=== PATIENT | female | born 1950 | race Caucasian/White ===

== ENCOUNTER 2018-05-01 08:19 | Day surgery (SDC) | payer MEDICARE, MEDICAID ==
[2018-04-16 12:08] LABS: ABSOLUTE EOSINOPHILS # (AUTO) 0.1 10^3/uL (0.0-0.6); ABSOLUTE LYMPHOCYTES (AUTO) 1.5 10^3/uL (0.5-4.7); ABSOLUTE MONOCYTES (AUTO) 0.4 10^3/uL (0.1-1.4); ABSOLUTE NEUT (AUTO) 2.7 10^3/uL (1.7-8.2); BASOPHILS % (AUTO) 0.7 % (0-2); EOSINOPHILS % (AUTO) 1.9 % (0-6); HEMATOCRIT 42.2 % (36.0-47.0); HEMOGLOBIN 14.5 g/dL (12.0-15.5); LYMPHOCYTES % (AUTO) 31.9 % (13-45); MEAN CORPUSCULAR HEMOGLOBIN 31.9 pg (27.0-33.4); MEAN CORPUSCULAR HGB CONC 34.4 g/dL (32.0-36.0); MEAN CORPUSCULAR VOLUME 93 fl (80-97); MONOCYTES % (AUTO) 7.7 % (3-13); PLATELET COUNT 166 10^3/uL (150-450); RED BLOOD COUNT 4.55 10^6/uL (3.72-5.28); RED CELL DISTRIBUTION WIDTH 12.9 % (11.5-14.0); SEGMENTED NEUTROPHILS % (AUTO) 57.8 % (42-78); TOTAL CELLS COUNTED % (AUTO) 100 %; WHITE BLOOD COUNT 4.7 10^3/uL (4.0-10.5)
[2018-04-16 12:13] LABS: INTERNATIONAL RATION (INR) 0.89; PROTHROMBIN TIME 12.5 SEC (11.4-15.4)
--- NOTE | 2018-04-16 17:07 | EKG REPORT ---
SEVERITY:- ABNORMAL ECG - SINUS ARRHYTHMIA, RATE 49-67 NONSPECIFIC INTRAVENTRICULAR CONDUCTION DELAY CONSIDER OLD ANTEROSEPTAL [place]. : Confirmed by: Fred Sherman MD 16-Apr-2018 17:07:04
[~2018-05-01 08:19] MED LIST: DOXYCYCLINE HYCLATE 100 MG in DEXTROSE 5%-WATER 250 ML IV PRN; LACTATED RINGERS 1000 ML IV PRN; LIDOCAINE 0.5% INJ-PF (5 MG/ML) 50 ML SDV SUBCUT PRN; LIDOCAINE 1% INJ-PF (10 MG/ML) 30 ML SDV ONE; LIDOCAINE 1%/EPINEPHRINE INJ 20 ML VIAL ONE; SODIUM BICARBONATE 8.4% INJ 50 MEQ/50 ML DISP.SYRIN ONE
[2018-05-01] MEDS ORDERED: KETAMINE HCL INJ 500 MG/10 ML VIAL ONE (09:30)
[2018-05-01] MEDS ORDERED: FENTANYL CITRATE INJ/PF 100 MCG/2 ML AMPUL ONE (09:31)
[2018-05-01] MEDS ORDERED: MIDAZOLAM 2 MG/2 ML INJ ONE (09:31)
[2018-05-01] MEDS ORDERED: PROPOFOL INJ 200 MG/20 ML VIAL IV ONE (09:31)
[2018-05-01] MEDS ORDERED: MORPHINE SULFATE 10 MG/ML INJ IV PRN (10:24)
[2018-05-01] MEDS ORDERED: ONDANSETRON HCL INJ/PF 4 MG/2 ML SDV IV PRN (10:24)
[2018-05-01] MEDS ORDERED: DIPHENHYDRAMINE HCL 50 MG/ML VIAL IV PRN (10:24)
[2018-05-01] MEDS ORDERED: MEPERIDINE HCL/PF INJ 25 MG/1 ML DISP.SYRIN IV PRN (10:24)
[2018-05-01] MEDS ORDERED: PROMETHAZINE HCL INJ 25 MG/1 ML VIAL IV PRN ×2 (10:24)
[2018-05-01] MEDS ORDERED: FENTANYL CITRATE INJ/PF 100 MCG/2 ML AMPUL IV PRN ×3 (10:24)
[2018-05-01] MEDS ORDERED: OXYCODONE-ACETAMINOPHEN 5-325 MG TABLET PO PRN ×2 (10:24)
--- NOTE | 2018-05-01 11:28 | Operative Report ---
Operative Report DATE OF SURGERY: 05/01/18 PREOPERATIVE DIAGNOSIS: Suspicious mass of the left posterior thigh which was d iscussed with Dr. Donnelly the ultrasound radiologist. Because of microcalcifications he thought this area was suspicious and that a wide local excision rather than a direct removal of the mass was warranted. POSTOPERATIVE DIAGNOSIS: Same OPERATION: Wide local excision of mass of left posterior thigh including skin and subcutaneous margins extending down sub-fascial to clear the deep margin. Reconstruction of the skin defect was with a boomerang flap. SURGEON: LIU CAROLINA ANESTHESIA: LMAC TISSUE REMOVED OR ALTERED: Mass of the left posterior thigh COMPLICATIONS: None ESTIMATED BLOOD LOSS: Minimal PROCEDURE: The patient was brought into the operating room after being marked. The patient was placed in a sloppy lateral position. The patient was then prepped with a Betadine scrub and Betadine solution. A timeout was performed. The area for resection was outlined. The outline was made approximately a half a centimeter around the actual mass itself so that the mass could be resected in toto without any violation of a peripheral or deep margin. This would leave a rather large defect with loss of skin subcutaneous tissue extending down subfascial onto the muscle. Injection of 1% lidocaine with epinephrine and bicarbonate was performed for its anesthetic and hemostatic effects. An incision was then made through the skin into the subcutaneous tissue. Dissection was performed [id number] to to stay away from the mass itself. The dissection was performed 360 in order to remove the mass Retraction was used to facilitate exposure. Dissection was performed through the subcutaneous tissue and down past the deep fascia above the muscle so that we can clear the bottom margin without exposing the mass. The dissection was performed in the subcutaneous and subfascial layer. [id number] the mass was dissected free of the surrounding tissue leaving a safe amount of tissue surrounding the mass. Throughout the case hemostasis was achieved with the bipolar and the Bovie. Once the mass was completely dissected it was then removed. The area was washed with Betadine and sterile water solution. Hemostasis was confirmed. There was a large skin defect after removing the mass. In order to reconstruct this sutures were placed in multiple layers as described below. The skin though was closed with a boomerang sliding advancement flap. This was needed to bring tissue into the area of the defect where the skin had been taken with the mass because of his extreme close proximity to the surface. Using the boomerang sliding advancement flap we were able to use tissue where there was laxity and bring it into the area of defect with the design of the flap. An incision was made the flap was created and dissected and then the closure began starting from deep and working superficial Closure was then performed using 3-0 Vicryl sutures. Because of the size of the mass deeper sutures were placed in order to minimize a deformity. The layers that were dissected were closed [id number] until we reached the deep dermis. The flap was then placed in its new position and the reconstruction continued. 3-0 Vicryl was used for deep fascia and the subcu and the deep dermal sutures. The subcuticular stitch was placed using 3-0 PDS. A central support stitch was placed using 3-0 PDS. The wound was cleaned with Betadine prior to the final closure. Tincture of benzoin and Steri-Strips with a light pressure dressing was applied. Patient was then reversed from anesthesia and taken to the [facility] for recovery. The approximate size of the mass was approximately 3.1 cm was the size of the mass not counting the wide local excision margins peripheral and deep. This dictation was performed with [employer] naturally speaking. If there are any inconsistencies or errors please contact the physician. Subjective: No complaints Objective: Vital signs stable afebrile No bleeding Dressing intact Assessment and plan: Doing well. Elevate the operative site. Resume medications. Take antibiotics for 1 day Follow-up Full instructions were given to the patient and family and they understand Portions of this note may be dictated using [employer] voice recognition software. Occasional variations and spelling and vocabulary could be possible and are unintentional. Additionally, there is a chance that some errors may not be caught or corrected. Please notify the offer of any discrepancies noted or if any statements are unclear.
--- NOTE | 2018-05-01 11:30 | Discharge Summary ---
Discharge Summary (SDC) - Discharge Final Diagnosis: Mass of the left posterior thigh Date of Surgery: 05/01/18 Condition: Good Treatment or Instructions: Leave the top dressing on for 2 days, then removed. Leave the steri-strip tapes on for 5 days, then removal. Then cleaning wound with peroxide and apply Neosporin/bacitracin 3 times per day. Antibiotics for 1 day, then discontinue. Elevate operative area to decrease swelling. Do not strain, or lift heavy objects. Call for excessive bleeding, increased temperature of 101, uncontrolled pain, or excessive nausea or vomiting. You may reach Dr. Ayala through his office at [phone]. In the event of an emergency after hours, then contact Dr. Ayala through [facility]. Return to the office for a postop check on . The time will be scheduled by the nursing staff of [facility] prior to discharge. Please give the patient a copy of their labs and EKG so they can bring this to their PMD. Thank you Portions of this note may be dictated using [employer] voice recognition software. Occasional variations and spelling and vocabulary could be possible and are unintentional. Additionally, there is a chance that some errors may not be caught or corrected. Please notify the offer of any discrepancies noted or if any statements are unclear. Referrals: MARIA DEL CARMEN TORRES MD [Primary Care Provider] - Discharge Diet: As Tolerated Discharge Activity: No Lifting/Push/Pulling Report the Following to Your Physician Immediately: Unusual Bleeding - Do not lay on the incision. Be careful that there is no tension on the incision. Keep the incision site clean.
[2018-05-01 13:38] VITALS: BP 126/78
[2018-05-01] MEDS ORDERED: PHENYLEPHRINE HCL INJ/PF 10 MG/1 ML SDV ONE (15:30)
[2018-05-01] MEDS ORDERED: GLYCOPYRROLATE 1 MG/5 ML SYRINGE ONE (15:30)
== END 2018-05-01 12:55 | disposition home or self-care (01) ==
LOC: OROUT 08:19
PROVIDERS: ATTEND Plastic Surgery
DX: D17.24 Benign lipomatous neoplasm of skin and subcutaneous tissue of left leg (principal); F17.210 Nicotine dependence, cigarettes, uncomplicated; I10 Essential (primary) hypertension; E89.0 Postprocedural hypothyroidism; E78.5 Hyperlipidemia, unspecified; M06.9 Rheumatoid arthritis, unspecified; Z88.0 Allergy status to penicillin; Z79.899 Other long term (current) drug therapy; Z85.038 Personal history of other malignant neoplasm of large intestine
CPT/HCPCS: 93010; 93005; 36415; 85025; 85610; 85730; 88305 ×2; 14020; J2250; J3490 ×5; J3010; J2370; J7060; J2704; 400

== ENCOUNTER → 2018-07-19 | Outpatient (CLI) | payer MEDICARE, MEDICAID ==
[2018-07-19 14:19] LABS: ABSOLUTE LYMPHOCYTES (AUTO) 1.5 10^3/uL (0.5-4.7); ABSOLUTE MONOCYTES (AUTO) 0.3 10^3/uL (0.1-1.4); ABSOLUTE NEUT (AUTO) 2.1 10^3/uL (1.7-8.2); BASOPHILS % (AUTO) 0.7 % (0-2); EOSINOPHILS % (AUTO) 1.2 % (0-6); HEMATOCRIT 39.7 % (36.0-47.0); HEMOGLOBIN 13.3 g/dL (12.0-15.5); LYMPHOCYTES % (AUTO) 36.8 % (13-45); MEAN CORPUSCULAR HEMOGLOBIN 30.7 pg (27.0-33.4); MEAN CORPUSCULAR HGB CONC 33.5 g/dL (32.0-36.0); MEAN CORPUSCULAR VOLUME 92 fl (80-97); MONOCYTES % (AUTO) 7.1 % (3-13); PLATELET COUNT 193 10^3/uL (150-450); RED BLOOD COUNT 4.34 10^6/uL (3.72-5.28); RED CELL DISTRIBUTION WIDTH 13.4 % (11.5-14.0); SEGMENTED NEUTROPHILS % (AUTO) 54.2 % (42-78); TOTAL CELLS COUNTED % (AUTO) 100 %
[2018-07-19 14:31] LABS: ALANINE AMINOTRANSFERASE 9 U/L (9-52); ALBUMIN 3.6 g/dL (3.5-5.0); ALKALINE PHOSPHATASE 72 U/L (38-126); ANION GAP 6 (5-19); ASPARTATE AMINO TRANSFERASE 10 U/L (14-36); BILIRUBIN,DIRECT 0.2 mg/dL (0.0-0.4); BILIRUBIN,TOTAL 0.5 mg/dL (0.2-1.3); BLOOD UREA NITROGEN 8 mg/dL (7-20); C-REACTIVE PROTEIN 32.4 mg/L (<10.0); CALCIUM 9.5 mg/dL (8.4-10.2); CARBON DIOXIDE 33 mmol/L (22-30); CHLORIDE 102 mmol/L (98-107); GLUCOSE 81 mg/dL (75-110); POTASSIUM 4.1 mmol/L (3.6-5.0); SODIUM 140.8 mmol/L (137-145)
[2018-07-19 14:57] LABS: ERYTHROCYTE SEDIMENTATION RATE 50 mm/hr (0-30)
== END ==
LOC: WC 13:41
PROVIDERS: ATTEND Plastic Surgery
DX: L97.122 Non-pressure chronic ulcer of left thigh with fat layer exposed (principal)
CPT/HCPCS: 36415; 80053; 85025; 85652; 86140

== ENCOUNTER 2019-07-24 15:49 | Inpatient (IN) | payer MEDICARE, MEDICAID ==
--- NOTE | 2019-07-24 16:19 | ER Document Report ---
ED Medical Screen (RME) - General Chief Complaint: Swelling of Lower Extremity Stated Complaint: LOWER EXTREMITY SWELLING Time Seen by Provider: 07/24/19 16:17 Primary Care Provider: MARIA DEL CARMEN TORRES MD [Primary Care Provider] - Follow up as needed Mode of Arrival: Wheelchair Information source: Patient Notes: 68-year-old female presented to ED for complaint of cellulitis x2 weeks. She states she was started on Cipro niacin and a water pill but she has been vomiting since Monday and cannot keep it down. She states both of her legs are very edematous. She has a history of bilateral breast cancer with mastectomy chemotherapy and XRT. She also has a history of high blood pressure hypothyroid. She states she smokes 5 to 10 cigarettes a day does not drink or use any illicit drugs. She is alert oriented respirations regular and unlabored speaking in full sentences. She does have redness from the knee down on both legs. She is very edematous up to the hips. I have greeted and performed a rapid initial assessment of this patient. A comprehensive ED assessment and evaluation of the patient, analysis of test results and completion of medical decision making process will be conducted by an additional ED providers. TRAVEL OUTSIDE OF THE [place] IN LAST 30 DAYS: No - Related Data Allergies/Adverse Reactions: adhesive tape Allergy (Verified 04/16/18 12:12) Penicillins Allergy (Verified 04/16/18 12:12) Past Medical History - Past Medical History Cardiac Medical History: Denies: Hx Coronary Artery Disease, Hx Heart Attack, Hx Hypertension Pulmonary Medical History: Denies: Hx Asthma, Hx Bronchitis, Hx COPD, Hx Pneumonia Neurological Medical History: Denies: Hx Cerebrovascular Accident, Hx Seizures Endocrine Medical History: Reports: Hx Hypothyroidism Malignancy Medical History: Reports: Hx Breast Cancer GI Medical History: Reports: Hx Gastroesophageal Reflux Disease Musculoskeltal Medical History: Reports Hx Arthritis Past Surgical History: Reports: Hx Breast Surgery - partial bilateral, Hx Orthopedic Surgery - left leg - Immunizations Immunizations up to date: Yes Hx Diphtheria, Pertussis, Tetanus Vaccination: Yes Physical Exam - Vital signs Vitals: Temp Pulse Resp BP Pulse Ox 97.7 F 66 18 116/85 93 07/24/19 15:54 07/24/19 15:54 07/24/19 15:54 07/24/19 15:54 05/27/20 15:54 Course - Vital Signs Vital signs: Temp Pulse Resp BP Pulse Ox 97.7 F 66 18 116/85 93 07/24/19 15:54 07/24/19 15:54 07/24/19 15:54 07/24/19 15:54 07/24/19 15:54 Doctor's Discharge - Discharge Referrals: MARIA DEL CARMEN TORRES MD [Primary Care Provider] - Follow up as needed
[2019-07-24] MEDS ORDERED: ONDANSETRON 4 MG TAB.RAPDIS PO ONE (16:21)
[2019-07-24 16:56] LABS: ABSOLUTE LYMPHOCYTES (AUTO) 0.6 10^3/uL (0.5-4.7); ABSOLUTE MONOCYTES (AUTO) 0.4 10^3/uL (0.1-1.4); ABSOLUTE NEUT (AUTO) 4.3 10^3/uL (1.7-8.2); BASOPHILS % (AUTO) 0.6 % (0-2); EOSINOPHILS % (AUTO) 0.6 % (0-6); HEMATOCRIT 44.9 % (36.0-47.0); HEMOGLOBIN 15.2 g/dL (12.0-15.5); MEAN CORPUSCULAR HEMOGLOBIN 31.6 pg (27.0-33.4); MEAN CORPUSCULAR HGB CONC 33.8 g/dL (32.0-36.0); MEAN CORPUSCULAR VOLUME 93 fl (80-97); MONOCYTES % (AUTO) 7.3 % (3-13); PLATELET COUNT 142 10^3/uL (150-450); RED BLOOD COUNT 4.81 10^6/uL (3.72-5.28); RED CELL DISTRIBUTION WIDTH 14.5 % (11.5-14.0); SEGMENTED NEUTROPHILS % (AUTO) 80.5 % (42-78); TOTAL CELLS COUNTED % (AUTO) 100 %; WHITE BLOOD COUNT 5.3 10^3/uL (4.0-10.5)
--- NOTE | 2019-07-24 16:58 | RADIOLOGY REPORT (SQ) ---
EXAM DESCRIPTION: CHEST 2 VIEWS IMAGES COMPLETED DATE/TIME: 07/24/2019 4:41 pm REASON FOR STUDY: Lower extremity swelling COMPARISON: None. EXAM PARAMETERS: NUMBER OF VIEWS: Two views. TECHNIQUE: PA and lateral views of the chest were obtained. RADIATION DOSE: NA LIMITATIONS: None. FINDINGS: LUNGS AND PLEURA: There is no consolidation, sizeable pleural effusion or pneumothorax. MEDIASTINUM AND HILAR STRUCTURES: No mediastinal or hilar contour abnormality. HEART AND VASCULAR STRUCTURES: The cardiac silhouette is enlarged. BONES: Osteopenia, chronic compression deformity of the T7 vertebral body, and chronic posttraumatic deformities of several left-sided ribs. HARDWARE: None in the chest. OTHER: No other finding. IMPRESSION: Cardiomegaly without a superimposed acute cardiopulmonary process. TECHNICAL DOCUMENTATION: JOB ID: [id number] 2010 [employer]- All Rights Reserved Reading location - IP/workstation name: [email or web address]
[2019-07-24 17:19] LABS: ALBUMIN 4.2 g/dL (3.5-5.0); ALKALINE PHOSPHATASE 101 U/L (38-126); ANION GAP 12 (5-19); ASPARTATE AMINO TRANSFERASE 30 U/L (14-36); BILIRUBIN,DIRECT 0.1 mg/dL (0.0-0.4); BILIRUBIN,TOTAL 1.1 mg/dL (0.2-1.3); BLOOD UREA NITROGEN 16 mg/dL (7-20); CALCIUM 9.2 mg/dL (8.4-10.2); CARBON DIOXIDE 29 mmol/L (22-30); CHLORIDE 83 mmol/L (98-107); GLUCOSE 108 mg/dL (75-110); POTASSIUM 4.6 mmol/L (3.6-5.0); TOTAL PROTEIN 7.1 g/dL (6.3-8.2)
[2019-07-24] MEDS ORDERED: DILTIAZEM HCL/D5W 125 MG/125 ML RTUINJ IV PRN (19:09)
[2019-07-24] MEDS ORDERED: DILTIAZEM HCL INJ 25 MG/5 ML VIAL IV ONE (19:09)
[2019-07-24] MEDS ORDERED: FUROSEMIDE INJ/PF 40 MG/4 ML SDV IV ONE (19:10)
--- NOTE | 2019-07-24 19:14 | ER Document Report ---
ED General - General Chief Complaint: Swelling of Lower Extremity Stated Complaint: LOWER EXTREMITY SWELLING Time Seen by Provider: 07/24/19 16:17 Primary Care Provider: MARIA DEL CARMEN TORRES MD [Primary Care Provider] - Follow up as needed Mode of Arrival: Wheelchair TRAVEL OUTSIDE OF THE [place] IN LAST 30 DAYS: No - HPI Notes: Patient is a 68-year-old female presents to the emergency department for evaluation of lower extremity edema. Is been going on for about 2 weeks. She saw her primary care provider last week, who started her on Cipro, Lasix, potassium. She states that since she started that she has been vomiting. She denies any fevers or chills. No chest pain or shortness of breath. She states she has noted that her abdomen has gotten larger as well. She has been taking her medications as prescribed. - Related Data Allergies/Adverse Reactions: adhesive tape Allergy (Verified 04/16/18 12:12) Penicillins Allergy (Verified 04/16/18 12:12) Home Medications: letrozole, metoprolol succ, percocet, synthroid, omeprazole Past Medical History - General Information source: Patient - Social History Smoking Status: Current Every Day Smoker Chew tobacco use (# tins/day): No Frequency of alcohol use: None Drug Abuse: None Family History: None, CAD Patient has homicidal ideation: No - Past Medical History Cardiac Medical History: Denies: Hx Coronary Artery Disease, Hx Heart Attack, Hx Hypertension Pulmonary Medical History: Denies: Hx Asthma, Hx Bronchitis, Hx COPD, Hx Pneumonia Neurological Medical History: Denies: Hx Cerebrovascular Accident, Hx Seizures Endocrine Medical History: Reports: Hx Hypothyroidism Malignancy Medical History: Reports: Hx Breast Cancer GI Medical History: Reports: Hx Gastroesophageal Reflux Disease Musculoskeletal Medical History: Reports Hx Arthritis Past Surgical History: Reports: Hx Breast Surgery - partial bilateral, Hx Orthopedic Surgery - left leg - Immunizations Immunizations up to date: Yes Hx Diphtheria, Pertussis, Tetanus Vaccination: Yes Review of Systems - Review of Systems Constitutional: See HPI Musculoskeletal: See HPI -: Yes All other systems reviewed and negative Physical Exam - Vital signs Vitals: Temp Pulse Resp BP Pulse Ox 97.7 F 66 18 116/85 93 07/24/19 15:54 07/24/19 15:54 07/24/19 15:54 07/24/19 15:54 07/24/19 15:54 - Notes Notes: This is a 68-year-old female who appears her stated age, no acute distress. Vital signs reviewed, please refer to chart. Head is normocephalic, atraumatic. Pupils equal round, reactive to light. Neck is supple without meningismus. Heart is irregularly irregular and tachycardic. Lungs are clear to auscultation bilaterally. Abdomen is soft, nontender, normoactive bowel sounds throughout. Patient has deformity of left lower extremity with tissue loss in the medial aspect of the left lower leg secondary to prior brown recluse bite. She has 4+ pitting edema to the mid abdomen throughout entire bilateral lower extremities. She has erythematous changes to bilateral feet, likely secondary to stasis. No posterior calf tenderness noted. No cyanosis or clubbing noted. Skin is warm and dry. Course - Re-evaluation Re-evalutation: 07/24/19 19:13 Patient presents to the emergency department for evaluation. Laboratory inv estigations were ordered as through triage, including imaging. Her EKG had not been performed, and when EKG was performed after Doppler she was found to be in new onset atrial fibrillation. This was explained to the patient, and rate control medications were ordered. She was maintained on the monitor. I will get head and administer Lasix, as she is volume overloaded at this time. Her serum sodium is extremely low as well. Laboratory investigations were added including TSH and coags. We will continue to monitor. 07/24/19 20:20 Patient is stable. Her heart rate has been improved with the Cardizem, drip remains. Will talk to medicine in regards to admission. 07/24/19 20:27 Dr. Jurado will admit the patient. - Vital Signs Vital signs: Temp Pulse Resp BP Pulse Ox 97.7 F 66 16 124/99 H 93 07/24/19 16:15 07/24/19 15:54 07/24/19 19:04 07/24/19 19:04 07/24/19 15:54 - Laboratory Result Diagrams: 07/24/19 16:25 07/24/19 16:25 Laboratory results interpreted by me: 07/24/19 07/24/19 07/24/19 16:25 16:25 16:25 RDW 14.5 H Plt Count 142 L Lymph % (Auto) 11.0 L Seg Neutrophils % 80.5 H Sodium 123.9 L Chloride 83 L NT-Pro-B Natriuret Pep 6500 H - Diagnostic Test Radiology reviewed: Reports reviewed Radiology results interpreted by me: 07/24/19 20:20 Chest X-Ray 07/24/19 16:21 IMPRESSION: Cardiomegaly without a superimposed acute cardiopulmonary process. - EKG Interpretation by Me Additional EKG results interpreted by me: 07/24/19 19:15 Atrial fibrillation with a rate of 146 bpm, multiple PVCs noted. Normal axis and intervals. Nonspecific ST changes, but no acute changes concerning for ischemia or infarction. Rhythm change noted from prior study in March 2018 Critical Care Note - Critical Care Note Total time excluding time spent on procedures (mins): 20 Discharge - Discharge Clinical Impression: Rapid atrial fibrillation, Hyponatremia, New onset of congestive heart failure Condition: Stable Disposition: ADMITTED INPATIENT Admitting Provider: Rhiannon (Hospitalist) Unit Admitted: IMCU Referrals: MARIA DEL CARMEN TORRES MD [Primary Care Provider] - Follow up as needed
[2019-07-24 19:20] LABS: INTERNATIONAL RATION (INR) 1.14; PARTIAL THROMBOPLASTIN TIME 29.7 SEC (23.5-35.8); PROTHROMBIN TIME 14.7 SEC (11.4-15.4)
--- NOTE | 2019-07-24 19:36 | EKG REPORT ---
SEVERITY:- ABNORMAL ECG - ATRIAL FIBRILLATION VENTRICULAR PREMATURE COMPLEX LOW VOLTAGE THROUGHOUT CONSIDER ANTEROSEPTAL INFARCT BORDERLINE T ABNORMALITIES, INFERIOR LEADS : Confirmed by: Fred Sherman MD 24-Jul-2019 19:35:47
[2019-07-24] MEDS ORDERED: ONDANSETRON HCL INJ/PF 4 MG/2 ML SDV IV ONE (19:59)
[2019-07-24] MEDS ORDERED: MORPHINE SULFATE 10 MG/ML INJ IV ONE (19:59)
--- NOTE | 2019-07-24 20:21 | RADIOLOGY REPORT (SQ) ---
EXAM DESCRIPTION: Bilateral lower extremity venous Doppler. July 24, 2019 at 6:17 PM CLINICAL HISTORY: bilateral lower extremity swelling COMPARISON: None Available TECHNIQUE: Duplex images of the common femoral, greater saphenous, superficial femoral, popliteal, peroneal, anterior and posterior tibial veins of both lower extremities were submitted. FINDINGS: There is left posterior tibial vein was not well visualized due to swelling. All of the remaining above-mentioned venous structures demonstrate normal spontaneous flow with respiratory phasicity and were fully compressible. There is subcutaneous edema. IMPRESSION: No sonographic evidence of acute DVT within the lower extremities. Subcutaneous edema.
[2019-07-24] MEDS ORDERED: ENOXAPARIN SODIUM INJ 100 MG/1 ML DISP.SYRIN SUBCUT ONE (20:24)
[2019-07-24] MEDS ORDERED: SILVER SULFADIAZINE 1% CREAM 25 GM TP ONE (20:34)
[2019-07-24 20:51] LABS: APPEARANCE,URINE CLEAR; BILIRUBIN,URINE NEGATIVE (NEGATIVE); COLOR,URINE YELLOW; GLUCOSE, URINE NEGATIVE (NEGATIVE); KETONES,URINE NEGATIVE (NEGATIVE); LEUKOCYTE ESTERASE,URINE LARGE (NEGATIVE); NITRITE,URINE NEGATIVE (NEGATIVE); PROTEIN,URINE NEGATIVE (NEGATIVE); URINE SPECIFIC GRAVITY 1.006; UROBILINOGEN,URINE NEGATIVE mg/dL (<2.0)
[2019-07-24] MEDS ORDERED: MAG HYDROX/AL HYDROX/SIMETH SUSP 30 ML UDCUP PO PRN (21:01)
[2019-07-24] MEDS ORDERED: NORMAL SALINE 250 ML with FUROSEMIDE 250 MG IV PRN ×2 (21:01)
[2019-07-24] MEDS ORDERED: PROMETHAZINE HCL INJ 25 MG/1 ML VIAL IV PRN (21:01)
[2019-07-24] MEDS ORDERED: MAGNESIUM HYDROXIDE SUSP 30 ML UDCUP PO PRN (21:01)
[2019-07-24] MEDS ORDERED: HYDRALAZINE HCL INJ/PF 20 MG/1 ML SDV IV PRN (21:08)
[2019-07-24] MEDS ORDERED: LEVALBUTEROL HCL NEB 0.63 MG/3 ML AMPUL NEB PRN (21:08)
[2019-07-24] MEDS ORDERED: GUAIFENESIN SYRP 200 MG/10 ML UDC PO PRN (21:08)
[2019-07-24] MEDS ORDERED: NICOTINE 21 MG/24 HR PATCH.TD24 TD PRN (21:08)
[2019-07-24] MEDS ORDERED: LORAZEPAM INJ 2 MG/1 ML VIAL IV PRN (21:08)
[2019-07-24] MEDS ORDERED: MORPHINE SULFATE 10 MG/ML INJ IV PRN ×4 (21:08→21:30)
[2019-07-24] MEDS: DILTIAZEM HCL/D5W 125 MG/125 ML RTUINJ IV PRN (21:30)
[2019-07-24 23:01] LABS: CREATINE KINASE MB 9.43 ng/mL (<4.55); TROPONIN I 0.028 ng/mL
[2019-07-24] MEDS: METOPROLOL SUCCINATE 50 MG TAB.SR.24H PO SCH (23:08)
[2019-07-24] MEDS: FAMOTIDINE 20 MG TABLET PO SCH (23:10)
[2019-07-24] MEDS: SODIUM BICARBONATE 650 MG TABLET PO SCH (23:31)
[2019-07-24] MEDS: ACETAMINOPHEN 325 MG TABLET PO PRN (23:31)
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
[2019-07-24] MEDS ORDERED: HYDROMORPHONE HCL INJ/PF 2 MG/ML AMPULE IV PRN ×5 (23:54→23:57)
[2019-07-25 00:40] LABS: ANION GAP 12 (5-19); BLOOD UREA NITROGEN 15 mg/dL (7-20); CALCIUM 8.9 mg/dL (8.4-10.2); CARBON DIOXIDE 28 mmol/L (22-30); CHLORIDE 84 mmol/L (98-107); GLUCOSE 108 mg/dL (75-110); POTASSIUM 4.3 mmol/L (3.6-5.0)
[2019-07-25 06:15] LABS: APPEARANCE,URINE CLEAR; BILIRUBIN,URINE NEGATIVE (NEGATIVE); COLOR,URINE STRAW; GLUCOSE, URINE NEGATIVE (NEGATIVE); KETONES,URINE NEGATIVE (NEGATIVE); LEUKOCYTE ESTERASE,URINE SMALL (NEGATIVE); NITRITE,URINE NEGATIVE (NEGATIVE); PROTEIN,URINE NEGATIVE (NEGATIVE); URINE SPECIFIC GRAVITY 1.003; UROBILINOGEN,URINE NEGATIVE mg/dL (<2.0)
[2019-07-25 07:18] LABS: ANION GAP 11 (5-19); BLOOD UREA NITROGEN 16 mg/dL (7-20); CALCIUM 8.7 mg/dL (8.4-10.2); CARBON DIOXIDE 30 mmol/L (22-30); CHLORIDE 86 mmol/L (98-107); CHOLESTEROL 150.16 mg/dL (0-200); CREATINE KINASE 118 U/L (30-135); GLUCOSE 111 mg/dL (75-110); POTASSIUM 4.3 mmol/L (3.6-5.0); TRIGLYCERIDES 116 mg/dL (<150)
[2019-07-25 07:19] LABS: ABSOLUTE BASOPHILS # (AUTO) 0.1 10^3/uL (0.0-0.2); ABSOLUTE LYMPHOCYTES (AUTO) 0.9 10^3/uL (0.5-4.7); ABSOLUTE MONOCYTES (AUTO) 0.7 10^3/uL (0.1-1.4); ABSOLUTE NEUT (AUTO) 4.8 10^3/uL (1.7-8.2); BASOPHILS % (AUTO) 0.9 % (0-2); EOSINOPHILS % (AUTO) 0.7 % (0-6); HEMATOCRIT 42.8 % (36.0-47.0); HEMOGLOBIN 14.6 g/dL (12.0-15.5); LYMPHOCYTES % (AUTO) 13.9 % (13-45); MEAN CORPUSCULAR HEMOGLOBIN 31.6 pg (27.0-33.4); MEAN CORPUSCULAR VOLUME 93 fl (80-97); MONOCYTES % (AUTO) 10.1 % (3-13); PLATELET COUNT 141 10^3/uL (150-450); RED CELL DISTRIBUTION WIDTH 14.3 % (11.5-14.0); SEGMENTED NEUTROPHILS % (AUTO) 74.4 % (42-78); TOTAL CELLS COUNTED % (AUTO) 100 %; WHITE BLOOD COUNT 6.5 10^3/uL (4.0-10.5)
[2019-07-25 07:29] LABS: CREATINE KINASE MB 6.79 ng/mL (<4.55); TROPONIN I 0.029 ng/mL
[2019-07-25 07:33] LABS: DIRECT LDL 101 mg/dL (<100)
[2019-07-25] MEDS: DILTIAZEM HCL/D5W 125 MG/125 ML RTUINJ IV PRN (08:11)
[2019-07-25] MEDS ORDERED: PROMETHAZINE HCL INJ 25 MG/1 ML VIAL IV PRN (09:30)
[2019-07-25] MEDS: FAMOTIDINE 20 MG TABLET PO SCH ×2 (09:56→22:19)
[2019-07-25] MEDS: CLOPIDOGREL BISULFATE 75 MG TABLET PO SCH (09:56)
[2019-07-25] MEDS: METOPROLOL SUCCINATE 50 MG TAB.SR.24H PO SCH (09:56)
[2019-07-25] MEDS: ENOXAPARIN SODIUM INJ 100 MG/1 ML DISP.SYRIN SUBCUT SCH ×2 (09:58→22:20)
[2019-07-25] MEDS: DOCUSATE SODIUM 100 MG CAPSULE PO SCH (09:58)
[2019-07-25] MEDS: MAGNESIUM SULFATE 1 GM/D5W 100 ML IV SCH ×2 (09:58→11:12)
[2019-07-25] MEDS: SODIUM BICARBONATE 650 MG TABLET PO SCH ×2 (09:59→14:12)
[2019-07-25 12:20] LABS: ANION GAP 11 (5-19); BLOOD UREA NITROGEN 15 mg/dL (7-20); CALCIUM 8.8 mg/dL (8.4-10.2); CARBON DIOXIDE 29 mmol/L (22-30); CHLORIDE 87 mmol/L (98-107); GLUCOSE 120 mg/dL (75-110); POTASSIUM 4.1 mmol/L (3.6-5.0)
[2019-07-25 12:24] LABS: CREATINE KINASE MB 6.78 ng/mL (<4.55); TROPONIN I 0.023 ng/mL
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
--- NOTE | 2019-07-25 16:53 | PDOC PROGRESS REPORT ---
Subjective Progress Note for:: 07/25/19 Subjective:: No adverse events overnight. Appears fatigued. Has been on the Lasix drip. We took her off of that and switch her to IV twice daily dosing. Her blood pressure was getting a little low. The Cardizem drip is been put on hold but she has been transitioned to oral metoprolol, which is scheduled to start this evening. Her heart rate is holding out in the 80s right now off the drip. Reason For Visit: ACUTE CONGESTIVE HEART FAILURE,ACUTE ATRIAL Physical Exam Vital Signs: Temp Pulse Resp BP Pulse Ox 97.6 F 86 16 104/70 93 07/25/19 12:58 07/25/19 16:15 07/25/19 15:33 07/25/19 16:15 07/25/19 15:33 Intake & Output 07/24/19 07/25/19 07/26/19 06:59 06:59 06:59 Intake Total 250 1008 Output Total 500 Balance -250 1008 Weight 104.1 kg General appearance: PRESENT: no acute distress, cooperative, disheveled, other - Looks fatigued Respiratory exam: PRESENT: crackles - Bibasilar, symmetrical, unlabored. ABSENT: accessory muscle use, chest wall tenderness, prolonged expiratory phas, tachypnea, wheezes Cardiovascular exam: PRESENT: irregular rhythm, +S1, +S2 Pulses: PRESENT: normal carotid pulses Vascular exam: PRESENT: normal capillary refill GI/Abdominal exam: PRESENT: normal bowel sounds, soft. ABSENT: guarding, tenderness Extremities exam: PRESENT: pedal edema, +2 edema - To her upper thighs. ABSENT: clubbing Musculoskeletal exam: PRESENT: normal inspection. ABSENT: deformity Neurological exam: PRESENT: awake, oriented to person, oriented to place, oriented to situation Psychiatric exam: PRESENT: flat affect Skin exam: PRESENT: dry, warm, other - Evidence of chronic venous insufficiency with hemosiderin deposition in the lower extremities bilaterally Results Laboratory Results: 07/25/19 06:23 07/25/19 11:30 07/24/19 07/24/19 07/24/19 16:25 16:25 16:25 WBC 5.3 RBC 4.81 Hgb 15.2 Hct 44.9 MCV 93 MCH 31.6 MCHC 33.8 RDW 14.5 H Plt Count 142 L Seg Neutrophils % 80.5 H Sodium 123.9 L Potassium 4.6 Chloride 83 L Carbon Dioxide 29 Anion Gap 12 BUN 16 Creatinine 0.60 Est GFR ( Amer) > 60 Glucose 108 Calcium 9.2 Magnesium Total Bilirubin 1.1 AST 30 Alkaline Phosphatase 101 Total Protein 7.1 Albumin 4.2 Triglycerides Cholesterol LDL Cholesterol Direct VLDL Cholesterol HDL Cholesterol Lipase 71.9 TSH 0.66 Free T3 pg/mL Urine Color Urine Appearance Urine pH Ur Specific [place] Urine Protein Urine Glucose (UA) Urine Ketones Urine Blood Urine Nitrite Ur Leukocyte Esterase Urine WBC (Auto) Urine RBC (Auto) 07/24/19 07/25/19 07/25/19 20:19 00:14 06:00 WBC RBC Hgb Hct MCV MCH MCHC RDW Plt Count Seg Neutrophils % Sodium 124.1 L Potassium 4.3 Chloride 84 L Carbon Dioxide 28 Anion Gap 12 BUN 15 Creatinine 0.61 Est GFR ( Amer) > 60 Glucose 108 Calcium 8.9 Magnesium Total Bilirubin AST Alkaline Phosphatase Total Protein Albumin Triglycerides Cholesterol LDL Cholesterol Direct VLDL Cholesterol HDL Cholesterol Lipase TSH Free T3 pg/mL Urine Color YELLOW STRAW Urine Appearance CLEAR CLEAR Urine pH 6.0 5.0 Ur Specific [place] 1.006 1.003 Urine Protein NEGATIVE NEGATIVE Urine Glucose (UA) NEGATIVE NEGATIVE Urine Ketones NEGATIVE NEGATIVE Urine Blood SMALL H SMALL H Urine Nitrite NEGATIVE NEGATIVE Ur Leukocyte Esterase LARGE H SMALL H Urine WBC (Auto) 27 10 Urine RBC (Auto) 2 0 07/25/19 07/25/19 07/25/19 06:23 06:23 06:23 WBC 6.5 RBC 4.60 Hgb 14.6 Hct 42.8 MCV 93 MCH 31.6 MCHC 34.0 RDW 14.3 H Plt Count 141 L Seg Neutrophils % 74.4 Sodium 127.3 L Potassium 4.3 Chloride 86 L Carbon Dioxide 30 Anion Gap 11 BUN 16 Creatinine 0.69 Est GFR ( Amer) > 60 Glucose 111 H Calcium 8.7 Magnesium 1.2 L* Total Bilirubin AST Alkaline Phosphatase Total Protein Albumin Triglycerides 116 Cholesterol 150.16 LDL Cholesterol Direct 101 H VLDL Cholesterol 23.0 HDL Cholesterol 42 Lipase TSH Free T3 pg/mL 2.48 L Urine Color Urine Appearance Urine pH Ur Specific [place] Urine Protein Urine Glucose (UA) Urine Ketones Urine Blood Urine Nitrite Ur Leukocyte Esterase Urine WBC (Auto) Urine RBC (Auto) 07/25/19 11:30 WBC RBC Hgb Hct MCV MCH MCHC RDW Plt Count Seg Neutrophils % Sodium 127.1 L Potassium 4.1 Chloride 87 L Carbon Dioxide 29 Anion Gap 11 BUN 15 Creatinine 0.65 Est GFR ( Amer) > 60 Glucose 120 H Calcium 8.8 Magnesium Total Bilirubin AST Alkaline Phosphatase Total Protein Albumin Triglycerides Cholesterol LDL Cholesterol Direct VLDL Cholesterol HDL Cholesterol Lipase TSH Free T3 pg/mL Urine Color Urine Appearance Urine pH Ur Specific [place] Urine Protein Urine Glucose (UA) Urine Ketones Urine Blood Urine Nitrite Ur Leukocyte Esterase Urine WBC (Auto) Urine RBC (Auto) 07/24/19 07/24/19 07/24/19 16:25 16:25 22:18 Creatine Kinase 148 H CK-MB (CK-2) Troponin I 0.022 NT-Pro-B Natriuret Pep 6500 H 07/24/19 07/25/19 07/25/19 22:18 06:23 06:23 Creatine Kinase Cancelled CK-MB (CK-2) 9.43 H 6.79 H Troponin I 0.028 0.029 NT-Pro-B Natriuret Pep 07/25/19 07/25/19 07/25/19 06:23 11:30 11:30 Creatine Kinase 118 97 CK-MB (CK-2) 6.78 H Troponin I 0.023 NT-Pro-B Natriuret Pep Impressions: Venous Doppler Study 07/24/19 16:19 IMPRESSION: No sonographic evidence of acute DVT within the lower extremities. Subcutaneous edema. Chest X-Ray 07/24/19 16:21 IMPRESSION: Cardiomegaly without a superimposed acute cardiopulmonary process. Assessment and Plan - Diagnosis (1) Acute congestive heart failure Qualifiers: Heart failure type: unspecified Qualified Code(s): I50.9 - Heart failure, unspecified Is this a current diagnosis for this admission?: Yes Plan: Echocardiogram is pending. Cardiology has been consulted. We took her off the Lasix drip and put her on IV twice a day dosing of Lasix. We started a beta- martha. When her blood pressure is certain to be stable, consider starting an ROJELIO inhibitor. (2) Anasarca Is this a current diagnosis for this admission?: Yes Plan: Diuresis as previously noted (3) Atrial fibrillation with rapid ventricular response Is this a current diagnosis for this admission?: Yes Plan: We will likely switch her over to Eliquis from [place]. We have taken off Cardizem drip and have put her on a beta-martha. Rate is now controlled. (4) Breast cancer Qualifiers: Breast location: unspecified site of breast Estrogen receptor status: unspecified Patient sex: female Is this a current diagnosis for this admission?: Yes Plan: She is on letrozole (5) Hyponatremia Is this a current diagnosis for this admission?: Yes Plan: Probably from her hypervolemic state, her sodium has improved with diuresis (6) Tobacco use disorder, continuous Is this a current diagnosis for this admission?: Yes Plan: Strongly encourage smoking cessation (7) Hypomagnesemia Is this a current diagnosis for this admission?: Yes Plan: Replaced with an IV supplement - Plan Summary Summary: Patient admitted to [facility] where she received routine supportive and symptomatic cares. She will initially be treated with a diltiazem infusion with eventual conversion to oral diltiazem as tolerated with rate control of her atrial fibrillation. Subcutaneous Lovenox will be used at 1 mg/kg every 12 hours for initial embolic prophylaxis. A cardiology consultation will be obtained with Dr. Best. An echocardiogram will be obtained. Patient will initially be treated with a Lasix infusion at 20 mg/h and her BMP will be followed on a every 6 hours basis. She received Dilaudid 0.5 to 2 mg IV every 3 hours as needed for pain using a sliding scale for dosing. She received Ativan 1 mg IV every 4 hours as needed for anxiety or restlessness. CBCs, metabolic profiles, magnesium levels and other laboratory or radiographic evaluations will be obtained as appropriate. Patient will be placed on a cardiac diet. Smoking cessation was advised and counseled briefly at the bedside. Nicotine replacement patch will be available for the patient's use, if desired. - Time Time Spent with patient: 25-34 minutes
[2019-07-25 18:23] LABS: ANION GAP 11 (5-19); BLOOD UREA NITROGEN 16 mg/dL (7-20); CALCIUM 8.6 mg/dL (8.4-10.2); CARBON DIOXIDE 31 mmol/L (22-30); CHLORIDE 85 mmol/L (98-107); GLUCOSE 121 mg/dL (75-110); POTASSIUM 3.9 mmol/L (3.6-5.0)
[2019-07-25] MEDS ORDERED: MAGNESIUM SULFATE/D5W 1 GM/100 ML RTUPB IV ONE (19:07)
[2019-07-25] MEDS ORDERED: METOPROLOL SUCCINATE 50 MG TAB.SR.24H PO SCH (22:00)
--- NOTE | 2019-07-25 22:15 | XCELERA REPORT ---
[address] [address] Transthoracic Echocardiogram Report Name: CHELSIE MCKNIGHT Age: 68 yrs Gender: Female : 1950 Patient Status: Inpatient Patient Location: [address] [place], [place] [id number] Study Date: 07/25/2019 09:03 PM History: CHF Height: 74 in Weight: 229 lb BSA: 2.3 m2 Procedure: A complete two-dimensional transthoracic echocardiogram was performed (2D, M-mode, spectral and color flow Doppler). The study was technically difficult with many images being suboptimal in quality. Reason For Study: CHF/AFIB RVR Previous Evaluation: No previous studies were available. History: CHF. Atrial fibrillation. Ordering Physician: IRIS GRIFFITH Performed By: Chiqui Caceres Interpretation Summary Due to the poor quality of the echocardiogram, an assessment of left ventricular ejection fraction cannot be made. Best estimate is 35-40%. The right ventricular systolic function is mild to moderately reduced. There is a mild amount of mitral regurgitation There is no aortic valve stenosis There is a mild to moderate amount of tricuspid regurgitation There is mild pulmonary hypertension by echo There is no pericardial effusion. MMode/2D Measurements & Calculations RVDd: 4.4 cm LVIDd: 6.8 cm FS: 20.2 % Ao root diam: 3.5 cm IVSd: 1.1 cm LVIDs: 5.4 cm EDV(Teich): 239.2 ml Ao root area: 9.7 cm2 LVPWd: 0.97 cm ESV(Teich): 142.8 ml LA dimension: 5.4 cm EF(Teich): 40.3 % Doppler Measurements & Calculations MV E max loren: MV P1/2t max loren: Ao V2 max: LV V1 max P.9 cm/sec 116.1 cm/sec 93.3 cm/sec 1.9 mmHg MV P1/2t: 70.0 msec Ao max PG: LV V1 max: MVA(P1/2t): 3.1 cm2 3.5 mmHg 69.1 cm/sec MV dec slope: 485.4 cm/sec2 MV dec time: 0.15 sec PA V2 max: PI end-d loren: TR max loren: MV P1/2t-pr_phl: 72.2 cm/sec 153.2 cm/sec 255.8 cm/sec 70.0 msec PA max PG: TR max P.1 mmHg 26.2 mmHg Left Ventricle The left ventricle is moderately dilated. There is mild to moderate concentric left ventricular hypertrophy. Due to the poor quality of the echocardiogram, an assessment of left ventricular ejection fraction cannot be made. Best estimate is 35-40%. LV diastolic function not assessed. There is mild to moderate global hypokinesis of the left ventricle. Right Ventricle The right ventricle is mild to moderately dilated. The right ventricular systolic function is mild to moderately reduced. Atria The right atrium is mild to moderately dilated. The left atrium is moderately dilated. Mitral Valve The mitral valve is grossly normal. There is a mild amount of mitral regurgitation. Aortic Valve The aortic valve is trileaflet. The aortic valve opens well. The aortic valve is sclerotic, but shows no functional abnormality. There is no aortic valve stenosis. No aortic regurgitation is present. Tricuspid Valve There is tricuspid annular calcification. There is a mild to moderate amount of tricuspid regurgitation. Right ventricular systolic pressure is estimated to be elevated at 30-40mmHg. There is mild pulmonary hypertension by echo. Pulmonic Valve The pulmonic valve is normal in structure and function. There is a mild amount of pulmonic regurgitation. Great Vessels The aortic root is normal size. The IVC is dilated and has no respiratory collapse suggesting significantly high central venous pressures. Effusions There is no pericardial effusion. : IRIS GRIFFITH Anil
[2019-07-25] MEDS: FUROSEMIDE INJ/PF 20 MG/2 ML SDV IV SCH (22:19)
[2019-07-26 01:01] LABS: ANION GAP 9 (5-19); BLOOD UREA NITROGEN 16 mg/dL (7-20); CALCIUM 8.4 mg/dL (8.4-10.2); CARBON DIOXIDE 30 mmol/L (22-30); CHLORIDE 89 mmol/L (98-107); GLUCOSE 108 mg/dL (75-110); POTASSIUM 3.8 mmol/L (3.6-5.0)
[2019-07-26] MEDS ORDERED: HYDROMORPHONE HCL INJ/PF 2 MG/ML AMPULE IV ONE (04:00)
[2019-07-26 06:34] LABS: HEMATOCRIT 39.6 % (36.0-47.0); HEMOGLOBIN 13.3 g/dL (12.0-15.5); MEAN CORPUSCULAR HEMOGLOBIN 31.6 pg (27.0-33.4); MEAN CORPUSCULAR HGB CONC 33.7 g/dL (32.0-36.0); MEAN CORPUSCULAR VOLUME 94 fl (80-97); PLATELET COUNT 123 10^3/uL (150-450); RED BLOOD COUNT 4.22 10^6/uL (3.72-5.28); RED CELL DISTRIBUTION WIDTH 14.5 % (11.5-14.0); WHITE BLOOD COUNT 5.8 10^3/uL (4.0-10.5)
[2019-07-26 06:59] LABS: ANION GAP 7 (5-19); BLOOD UREA NITROGEN 14 mg/dL (7-20); CALCIUM 8.3 mg/dL (8.4-10.2); CARBON DIOXIDE 33 mmol/L (22-30); CHLORIDE 89 mmol/L (98-107); GLUCOSE 106 mg/dL (75-110); POTASSIUM 3.6 mmol/L (3.6-5.0)
[2019-07-26] MEDS: ENOXAPARIN SODIUM INJ 100 MG/1 ML DISP.SYRIN SUBCUT SCH ×2 (09:53→21:35)
[2019-07-26] MEDS: CLOPIDOGREL BISULFATE 75 MG TABLET PO SCH (10:08)
[2019-07-26] MEDS: FAMOTIDINE 20 MG TABLET PO SCH ×2 (10:08→21:34)
[2019-07-26] MEDS: METOPROLOL SUCCINATE 50 MG TAB.SR.24H PO SCH ×2 (10:08→21:34)
[2019-07-26] MEDS: DOCUSATE SODIUM 100 MG CAPSULE PO SCH (10:09)
[2019-07-26] MEDS: FUROSEMIDE INJ/PF 20 MG/2 ML SDV IV SCH (10:09)
[2019-07-26 13:00] LABS: ANION GAP 9 (5-19); BLOOD UREA NITROGEN 14 mg/dL (7-20); CALCIUM 8.7 mg/dL (8.4-10.2); CARBON DIOXIDE 35 mmol/L (22-30); CHLORIDE 87 mmol/L (98-107); GLUCOSE 82 mg/dL (75-110); POTASSIUM 3.7 mmol/L (3.6-5.0)
--- NOTE | 2019-07-26 14:24 | PDOC PROGRESS REPORT ---
Subjective Progress Note for:: 07/26/19 Subjective:: No adverse events overnight. She is down to 2 L nasal cannula. She said she has had good urine output. She says her legs do not feel as swollen. She is not try to get up and ambulate. Her appetite is not very good. Reason For Visit: ACUTE CONGESTIVE HEART FAILURE,ACUTE ATRIAL Physical Exam Vital Signs: Temp Pulse Resp BP Pulse Ox 97.7 F 100 15 93/66 L 92 07/26/19 11:24 07/26/19 11:33 07/26/19 11:33 07/26/19 11:24 07/26/19 11:33 Intake & Output 07/25/19 07/26/19 07/27/19 06:59 06:59 06:59 Intake Total 250 1668 576 Output Total 500 1800 Balance -250 -132 576 Weight 104.1 kg 103.2 kg General appearance: PRESENT: no acute distress, cooperative, disheveled, other - Looks fatigued Respiratory exam: PRESENT: crackles - Bibasilar, symmetrical, unlabored. ABSENT: accessory muscle use, chest wall tenderness, prolonged expiratory phas, tachypnea, wheezes Cardiovascular exam: PRESENT: irregular rhythm, +S1, +S2 Pulses: PRESENT: normal carotid pulses Vascular exam: PRESENT: normal capillary refill GI/Abdominal exam: PRESENT: normal bowel sounds, soft. ABSENT: guarding, tenderness Extremities exam: PRESENT: pedal edema, +2 edema - To her upper thighs. ABSENT: clubbing Musculoskeletal exam: PRESENT: normal inspection. ABSENT: deformity Neurological exam: PRESENT: awake, oriented to person, oriented to place, oriented to situation Psychiatric exam: PRESENT: flat affect Skin exam: PRESENT: dry, warm, other - Evidence of chronic venous insufficiency with hemosiderin deposition in the lower extremities bilaterally Results Laboratory Results: 07/26/19 06:11 07/26/19 12:07 07/25/19 07/26/19 07/26/19 17:37 00:38 06:11 WBC 5.8 RBC 4.22 Hgb 13.3 Hct 39.6 MCV 94 MCH 31.6 MCHC 33.7 RDW 14.5 H Plt Count 123 L Sodium 126.8 L 128.4 L Potassium 3.9 3.8 Chloride 85 L 89 L Carbon Dioxide 31 H 30 Anion Gap 11 9 BUN 16 16 Creatinine 0.83 0.68 Est GFR ( Amer) > 60 > 60 Glucose 121 H 108 Calcium 8.6 8.4 07/26/19 07/26/19 06:11 12:07 WBC RBC Hgb Hct MCV MCH MCHC RDW Plt Count Sodium 129.1 L 130.5 L Potassium 3.6 3.7 Chloride 89 L 87 L Carbon Dioxide 33 H 35 H Anion Gap 7 9 BUN 14 14 Creatinine 0.60 0.62 Est GFR ( Amer) > 60 > 60 Glucose 106 82 Calcium 8.3 L 8.7 07/24/19 07/24/19 07/24/19 16:25 16:25 22:18 Creatine Kinase 148 H CK-MB (CK-2) Troponin I 0.022 NT-Pro-B Natriuret Pep 6500 H 07/24/19 07/25/19 07/25/19 22:18 06:23 06:23 Creatine Kinase Cancelled CK-MB (CK-2) 9.43 H 6.79 H Troponin I 0.028 0.029 NT-Pro-B Natriuret Pep 07/25/19 07/25/19 07/25/19 06:23 11:30 11:30 Creatine Kinase 118 97 CK-MB (CK-2) 6.78 H Troponin I 0.023 NT-Pro-B Natriuret Pep Impressions: Venous Doppler Study 07/24/19 16:19 IMPRESSION: No sonographic evidence of acute DVT within the lower extremities. Subcutaneous edema. Chest X-Ray 07/24/19 16:21 IMPRESSION: Cardiomegaly without a superimposed acute cardiopulmonary process. Assessment and Plan - Diagnosis (1) Acute congestive heart failure Qualifiers: Heart failure type: unspecified Qualified Code(s): I50.9 - Heart failure, unspecified Is this a current diagnosis for this admission?: Yes Plan: She is responding well to diuresis. Echocardiogram showed an EF of 35 to 40% with decreased right ventricular function. She is on beta-martha twice a day. When her blood pressure allows will consider adding an ROJELIO inhibitor. Plan will be to medically optimize her, arrange for outpatient follow-up so that she can get an ischemic work-up. (2) Anasarca Is this a current diagnosis for this admission?: Yes Plan: Diuresis as previously noted (3) Atrial fibrillation with rapid ventricular response Is this a current diagnosis for this admission?: Yes Plan: We got her off of the Cardizem drip and we have her on Toprol-XL twice a day with good heart rate control. We will anticoagulate with Eliquis. (4) Breast cancer Qualifiers: Breast location: unspecified site of breast Estrogen receptor status: unsp ecified Patient sex: female Is this a current diagnosis for this admission?: Yes Plan: She is on letrozole (5) Hyponatremia Is this a current diagnosis for this admission?: Yes Plan: Probably from her hypervolemic state, her sodium has improved with diuresis (6) Tobacco use disorder, continuous Is this a current diagnosis for this admission?: Yes Plan: Strongly encourage smoking cessation (7) Hypomagnesemia Is this a current diagnosis for this admission?: Yes Plan: Following up to see if this is corrected - Plan Summary Summary: Patient admitted to [facility] where she received routine supportive and symptomatic cares. She will initially be treated with a diltiazem infusion with eventual conversion to oral diltiazem as tolerated with rate control of her atrial fibr illation. Subcutaneous Lovenox will be used at 1 mg/kg every 12 hours for initial embolic prophylaxis. A cardiology consultation will be obtained with Dr. Best. An echocardiogram will be obtained. Patient will initially be treated with a Lasix infusion at 20 mg/h and her BMP will be followed on a every 6 hours basis. She received Dilaudid 0.5 to 2 mg IV every 3 hours as needed for pain using a sliding scale for dosing. She received Ativan 1 mg IV every 4 hours as needed for anxiety or restlessness. CBCs, metabolic profiles, magnesium levels and other laboratory or radiographic evaluations will be obtained as appropriate. Patient will be placed on a cardiac diet. Smoking cessation was advised and counseled briefly at the bedside. Nicotine replacement patch will be available for the patient's use, if desired. - Time Time Spent with patient: 25-34 minutes
--- NOTE | 2019-07-26 14:55 | PDOC PROGRESS REPORT ---
Subjective Progress Note for:: 07/26/19 Subjective:: Patient resting comfortably. No distress noted. Continues to be in atrial fibrillation but rate is better controlled. Had some diuresis overnight. Improvement in edema noted. Reason For Visit: ACUTE CONGESTIVE HEART FAILURE,ACUTE ATRIAL Physical Exam Vital Signs: Temp Pulse Resp BP Pulse Ox 97.7 F 99 20 98/50 L 90 L 07/26/19 07:33 07/26/19 07:33 07/26/19 07:33 07/26/19 07:33 07/26/19 07:33 Intake & Output 07/25/19 07/26/19 07/27/19 06:59 06:59 06:59 Intake Total 250 1668 Output Total 500 1800 Balance -250 -132 Weight 104.1 kg 103.2 kg General appearance: PRESENT: no acute distress, well-developed, well-nourished Head exam: PRESENT: atraumatic, normocephalic Eye exam: PRESENT: conjunctiva pink, EOMI Respiratory exam: PRESENT: symmetrical, unlabored Cardiovascular exam: PRESENT: irregular rhythm, +S1, +S2 Rectal exam: PRESENT: deferred Skin exam: PRESENT: dry, intact Results Laboratory Results: 07/26/19 06:11 07/26/19 06:11 07/25/19 07/25/19 07/26/19 11:30 17:37 00:38 WBC RBC Hgb Hct MCV MCH MCHC RDW Plt Count Sodium 127.1 L 126.8 L 128.4 L Potassium 4.1 3.9 3.8 Chloride 87 L 85 L 89 L Carbon Dioxide 29 31 H 30 Anion Gap 11 11 9 BUN 15 16 16 Creatinine 0.65 0.83 0.68 Est GFR ( Amer) > 60 > 60 > 60 Glucose 120 H 121 H 108 Calcium 8.8 8.6 8.4 07/26/19 07/26/19 06:11 06:11 WBC 5.8 RBC 4.22 Hgb 13.3 Hct 39.6 MCV 94 MCH 31.6 MCHC 33.7 RDW 14.5 H Plt Count 123 L Sodium 129.1 L Potassium 3.6 Chloride 89 L Carbon Dioxide 33 H Anion Gap 7 BUN 14 Creatinine 0.60 Est GFR ( Amer) > 60 Glucose 106 Calcium 8.3 L 07/24/19 07/24/19 07/24/19 16:25 16:25 22:18 Creatine Kinase 148 H CK-MB (CK-2) Troponin I 0.022 NT-Pro-B Natriuret Pep 6500 H 07/24/19 07/25/19 07/25/19 22:18 06:23 06:23 Creatine Kinase Cancelled CK-MB (CK-2) 9.43 H 6.79 H Troponin I 0.028 0.029 NT-Pro-B Natriuret Pep 07/25/19 07/25/19 07/25/19 06:23 11:30 11:30 Creatine Kinase 118 97 CK-MB (CK-2) 6.78 H Troponin I 0.023 NT-Pro-B Natriuret Pep Impressions: Venous Doppler Study 07/24/19 16:19 IMPRESSION: No sonographic evidence of acute DVT within the lower extremities. Subcutaneous edema. Chest X-Ray 07/24/19 16:21 IMPRESSION: Cardiomegaly without a superimposed acute cardiopulmonary process. Assessment & Plan - Diagnosis (1) New onset of congestive heart failure Is this a current diagnosis for this admission?: Yes Plan: Transthoracic echocardiogram shows LV dysfunction. Suboptimal quality of study makes assessment of left ventricular ejection fraction difficult. Best estimate is ~40% We will institute guideline directed medical therapy for LV dysfunction with ROJELIO inhibition and beta-martha. She may need maintenance diuretic Will need ischemia evaluation which can be arranged as an outpatient. (2) Atrial fibrillation with rapid ventricular response Is this a current diagnosis for this admission?: Yes Plan: Rate controlled. Systemic anticoagulation Betablocker Can consider GAYLE DCCV as outpatient. - Notes Notes: Reported to have Ca Breast. Further details unknown.
[2019-07-26] MEDS: ACETAMINOPHEN 325 MG TABLET PO PRN (17:40)
[2019-07-26 18:54] LABS: ANION GAP 7 (5-19); BLOOD UREA NITROGEN 15 mg/dL (7-20); CALCIUM 8.6 mg/dL (8.4-10.2); CARBON DIOXIDE 35 mmol/L (22-30); CHLORIDE 89 mmol/L (98-107); GLUCOSE 126 mg/dL (75-110); POTASSIUM 3.7 mmol/L (3.6-5.0)
[2019-07-27] MEDS: FUROSEMIDE INJ/PF 20 MG/2 ML SDV IV SCH ×3 (01:09→18:39)
[2019-07-27 08:53] LABS: ANION GAP 7 (5-19); BLOOD UREA NITROGEN 11 mg/dL (7-20); CALCIUM 8.5 mg/dL (8.4-10.2); CARBON DIOXIDE 35 mmol/L (22-30); CHLORIDE 91 mmol/L (98-107); GLUCOSE 105 mg/dL (75-110); POTASSIUM 3.4 mmol/L (3.6-5.0)
[2019-07-27] MEDS: CLOPIDOGREL BISULFATE 75 MG TABLET PO SCH (11:34)
[2019-07-27] MEDS: ENOXAPARIN SODIUM INJ 100 MG/1 ML DISP.SYRIN SUBCUT SCH (11:34)
--- NOTE | 2019-07-27 11:41 | PDOC PROGRESS REPORT ---
Subjective Progress Note for:: 07/27/19 Subjective:: Saw and examined patient today. She reports no significant improvement. Initially although she was comfortable and sleeping in bed. She endorses mild improvement in lower extremity edema. She has a wound on the left lower extremity which is continuing to weep. She claims that her chronic pain medicines have been discontinued and she is hurting in her back. Her heart rate is mildly elevated today. Reason For Visit: ACUTE CONGESTIVE HEART FAILURE,ACUTE ATRIAL Physical Exam Vital Signs: Temp Pulse Resp BP Pulse Ox 97.3 F 88 22 H 104/71 96 07/27/19 07:53 07/27/19 07:53 07/27/19 07:53 07/27/19 07:53 07/27/19 07:53 Intake & Output 07/26/19 07/27/19 07/28/19 06:59 06:59 06:59 Intake Total 1668 1022 Output Total 1800 1000 Balance -132 22 Weight 103.2 kg 101.4 kg General appearance: PRESENT: no acute distress, cooperative, obese, well- developed, well-nourished Head exam: PRESENT: atraumatic, normocephalic Eye exam: PRESENT: conjunctiva pale Mouth exam: PRESENT: moist Respiratory exam: PRESENT: decreased breath sounds, rales, symmetrical, unlabored Cardiovascular exam: PRESENT: irregular rhythm, +S1, +S2 Pulses: PRESENT: normal radial pulses GI/Abdominal exam: PRESENT: soft Rectal exam: PRESENT: deferred Extremities exam: PRESENT: pedal edema - Right lower extremity has pedal edema Musculoskeletal exam: PRESENT: other - Left lower extremity has chronic wound and ulcerative changes. Wound is bandaged. Neurological exam: PRESENT: alert, awake, oriented to person, oriented to place, oriented to time, oriented to situation Psychiatric exam: PRESENT: appropriate affect Skin exam: PRESENT: dry Results Laboratory Results: 07/26/19 06:11 07/27/19 08:00 07/26/19 07/26/19 07/26/19 12:07 12:07 18:14 Sodium 130.5 L 130.6 L Potassium 3.7 3.7 Chloride 87 L 89 L Carbon Dioxide 35 H 35 H Anion Gap 9 7 BUN 14 15 Creatinine 0.62 0.63 Est GFR ( Amer) > 60 > 60 Glucose 82 126 H Calcium 8.7 8.6 Magnesium 1.5 L 07/27/19 08:00 Sodium 132.8 L Potassium 3.4 L Chloride 91 L Carbon Dioxide 35 H Anion Gap 7 BUN 11 Creatinine 0.48 L Est GFR ( Amer) > 60 Glucose 105 Calcium 8.5 Magnesium 07/24/19 07/24/19 07/24/19 16:25 16:25 22:18 Creatine Kinase 148 H CK-MB (CK-2) Troponin I 0.022 NT-Pro-B Natriuret Pep 6500 H 07/24/19 07/25/19 07/25/19 22:18 06:23 06:23 Creatine Kinase Cancelled CK-MB (CK-2) 9.43 H 6.79 H Troponin I 0.028 0.029 NT-Pro-B Natriuret Pep 07/25/19 07/25/19 07/25/19 06:23 11:30 11:30 Creatine Kinase 118 97 CK-MB (CK-2) 6.78 H Troponin I 0.023 NT-Pro-B Natriuret Pep Impressions: Venous Doppler Study 07/24/19 16:19 IMPRESSION: No sonographic evidence of acute DVT within the lower extremities. Subcutaneous edema. Chest X-Ray 07/24/19 16:21 IMPRESSION: Cardiomegaly without a superimposed acute cardiopulmonary process. Assessment & Plan - Diagnosis (1) New onset of congestive heart failure Is this a current diagnosis for this admission?: Yes Plan: Congestive heart failure. Echocardiogram shows left ventricular dysfunction with ejection fraction probably around 35 to 40%. Ejection fraction is hard to estimate on account of atrial fibrillation and rapid ventricular rate and poor quality of study. But I suspect she has dilated cardiomyopathy of unclear etiology at this point. She continues to be mildly volume overloaded on exam and based on symptoms. I suspect that we should continue with intravenous furosemide until there has been a slight bump in creatinine or has been more diminishment of edema. Continue beta-martha and uptitrate as tolerated. If the ventricular rate continues to be high she may need additional oral digoxin for better rate control especially if limited by blood pressure (2) Atrial fibrillation with rapid ventricular response Is this a current diagnosis for this admission?: Yes Plan: Atrial fibrillation rapid ventricular response. Patient claims that this is a new diagnosis. We will continue rate control measures with aggressive beta-blockade and uptitrate as tolerated. If are limited by blood pressure we have to consider adding digoxin for better rate control Systemic oral anticoagulation given increased risk of left atrial appendage thrombus given congestive heart failure age and sex - Notes Notes: We will continue attempts to optimize her fluid status. Ventricular rate continues to be mildly elevated and there hopefully is room to uptitrate beta-martha. If this is not possible then will consider oral digoxin. Continue systemic anticoagulation with apixaban 5 mg twice daily.
[2019-07-27] MEDS: FAMOTIDINE 20 MG TABLET PO SCH ×2 (11:59→23:01)
[2019-07-27] MEDS: METOPROLOL SUCCINATE 50 MG TAB.SR.24H PO SCH ×2 (11:59→23:01)
[2019-07-27] MEDS: SILVER SULFADIAZINE 1% CREAM 25 GM TP SCH (11:59)
[2019-07-27] MEDS: DOCUSATE SODIUM 100 MG CAPSULE PO SCH (12:00)
--- NOTE | 2019-07-27 13:54 | PDOC PROGRESS REPORT ---
Subjective Progress Note for:: 07/27/19 Subjective:: No adverse events overnight. She stable on 2 L nasal cannula. She said that they have not tried her on room air to see how she will do. She has been resting comfortably. Appetite is been fair. She says she feels like the edema in her legs has gone down some. Reason For Visit: ACUTE CONGESTIVE HEART FAILURE,ACUTE ATRIAL Physical Exam Vital Signs: Temp Pulse Resp BP Pulse Ox 97.5 F 124 H 16 106/80 93 07/27/19 12:22 07/27/19 12:22 07/27/19 12:22 07/27/19 12:22 07/27/19 12:22 Intake & Output 07/26/19 07/27/19 07/28/19 06:59 06:59 06:59 Intake Total 1668 1022 Output Total 1800 1000 Balance -132 22 Weight 103.2 kg 101.4 kg General appearance: PRESENT: no acute distress, cooperative, disheveled, other - Looks fatigued Respiratory exam: PRESENT: crackles - Bibasilar, symmetrical, unlabored. ABSENT: accessory muscle use, chest wall tenderness, prolonged expiratory phas, tachypnea, wheezes Cardiovascular exam: PRESENT: irregular rhythm, +S1, +S2 Pulses: PRESENT: normal carotid pulses Vascular exam: PRESENT: normal capillary refill GI/Abdominal exam: PRESENT: normal bowel sounds, soft. ABSENT: guarding, tenderness Extremities exam: PRESENT: pedal edema, +1 edema - To her upper thighs. ABSENT: clubbing Musculoskeletal exam: PRESENT: normal inspection. ABSENT: deformity Neurological exam: PRESENT: awake, oriented to person, oriented to place, oriented to situation Psychiatric exam: PRESENT: flat affect Skin exam: PRESENT: dry, warm, other - Evidence of chronic venous insufficiency with hemosiderin deposition in the lower extremities bilaterally Results Laboratory Results: 07/26/19 06:11 07/27/19 08:00 07/26/19 07/26/19 07/27/19 12:07 18:14 08:00 Sodium 130.6 L 132.8 L Potassium 3.7 3.4 L Chloride 89 L 91 L Carbon Dioxide 35 H 35 H Anion Gap 7 7 BUN 15 11 Creatinine 0.63 0.48 L Est GFR ( Amer) > 60 > 60 Glucose 126 H 105 Calcium 8.6 8.5 Magnesium 1.5 L 07/24/19 07/24/19 07/24/19 16:25 16:25 22:18 Creatine Kinase 148 H CK-MB (CK-2) Troponin I 0.022 NT-Pro-B Natriuret Pep 6500 H 07/24/19 07/25/19 07/25/19 22:18 06:23 06:23 Creatine Kinase Cancelled CK-MB (CK-2) 9.43 H 6.79 H Troponin I 0.028 0.029 NT-Pro-B Natriuret Pep 07/25/19 07/25/19 07/25/19 06:23 11:30 11:30 Creatine Kinase 118 97 CK-MB (CK-2) 6.78 H Troponin I 0.023 NT-Pro-B Natriuret Pep Impressions: Venous Doppler Study 07/24/19 16:19 IMPRESSION: No sonographic evidence of acute DVT within the lower extremities. Subcutaneous edema. Chest X-Ray 07/24/19 16:21 IMPRESSION: Cardiomegaly without a superimposed acute cardiopulmonary process. 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 Echocardiogram showed an EF of 35 to 40% with decreased right ventricular function. She is on beta-martha twice a day. When her blood pressure allows will consider adding an ROJELIO inhibitor. Plan will be to medically optimize her, arrange for outpatient follow-up so that she can get an ischemic work-up. (2) Anasarca Is this a current diagnosis for this admission?: Yes Plan: Diuresis as previously noted (3) Atrial fibrillation with rapid ventricular response Is this a current diagnosis for this admission?: Yes Plan: We got her off of the Cardizem drip and we have her on Toprol-XL twice a day with good heart rate control. We anticoagulate with Eliquis. (4) Breast cancer Qualifiers: Breast location: unspecified site of breast Estrogen receptor status: unspecified Patient sex: female Is this a current diagnosis for this admission?: Yes Plan: She is on letrozole (5) Hyponatremia Is this a current diagnosis for this admission?: Yes Plan: Probably from her hypervolemic state, her sodium has improved with diuresis (6) Tobacco use disorder, continuous Is this a current diagnosis for this admission?: Yes Plan: Strongly encourage smoking cessation (7) Hypomagnesemia Is this a current diagnosis for this admission?: Yes Plan: Following up to see if this is corrected - Plan Summary Summary: Patient admitted to [facility] where she received routine supportive and symptomatic cares. She will initially be treated with a diltiazem infusion with eventual conversion to oral diltiazem as tolerated with rate control of her atrial fibrillation. Subcutaneous Lovenox will be used at 1 mg/kg every 12 hours for initial embolic prophylaxis. A cardiology consultation will be obtained with Dr Luis Best. An echocardiogram will be obtained. Patient will initially be treated with a Lasix infusion at 20 mg/h and her BMP will be followed on a every 6 hours basis. She received Dilaudid 0.5 to 2 mg IV every 3 hours as needed for pain using a sliding scale for dosing. She received Ativan 1 mg IV every 4 hours as needed for anxiety or restlessness. CBCs, metabolic profiles, magnesium levels and other laboratory or radiographic evaluations will be obtained as appropriate. Patient will be placed on a cardiac diet. Smoking cessation was advised and counseled briefly at the bedside. Nicotine replacement patch will be available for the patient's use, if desired. - Time Time Spent with patient: 25-34 minutes
[2019-07-27] MEDS: APIXABAN 5 MG TABLET PO SCH (18:39)
[2019-07-27] MEDS ORDERED: MELATONIN 5 MG TABLET PO PRN (22:41)
[2019-07-28] MEDS: ACETAMINOPHEN 325 MG TABLET PO PRN (04:34)
[2019-07-28] MEDS: FUROSEMIDE INJ/PF 20 MG/2 ML SDV IV SCH ×2 (05:36→18:44)
[2019-07-28 06:33] LABS: ANION GAP 8 (5-19); BLOOD UREA NITROGEN 10 mg/dL (7-20); CARBON DIOXIDE 36 mmol/L (22-30); CHLORIDE 90 mmol/L (98-107); GLUCOSE 131 mg/dL (75-110); POTASSIUM 3.6 mmol/L (3.6-5.0)
[2019-07-28] MEDS: METOPROLOL SUCCINATE 50 MG TAB.SR.24H PO SCH ×2 (10:03→22:13)
[2019-07-28] MEDS: FAMOTIDINE 20 MG TABLET PO SCH ×2 (10:03→22:13)
[2019-07-28] MEDS: APIXABAN 5 MG TABLET PO SCH ×2 (10:03→18:51)
[2019-07-28] MEDS: SILVER SULFADIAZINE 1% CREAM 25 GM TP SCH (10:04)
--- NOTE | 2019-07-28 12:54 | PDOC PROGRESS REPORT ---
Subjective Progress Note for:: 07/28/19 Subjective:: No adverse events overnight. Resting comfortably on room air. She is not tried to ambulate much yet. Appetite is been fair. She has had good urine output. Reason For Visit: ACUTE CONGESTIVE HEART FAILURE,ACUTE ATRIAL Physical Exam Vital Signs: Temp Pulse Resp BP Pulse Ox 97.7 F 34 L 24 H 111/68 94 07/28/19 11:12 07/28/19 11:12 07/28/19 11:12 07/28/19 11:12 07/28/19 11:12 Intake & Output 07/27/19 07/28/19 07/29/19 06:59 06:59 06:59 Intake Total 1022 834 Output Total 1000 2275 Balance 22 -1441 Weight 101.4 kg 97.9 kg General appearance: PRESENT: no acute distress, cooperative, disheveled, other - Looks fatigued Respiratory exam: PRESENT: Diminished bilaterally, symmetrical, unlabored. ABSENT: accessory muscle use, chest wall tenderness, crackles, prolonged expiratory phase, tachypnea, wheezes Cardiovascular exam: PRESENT: irregular rhythm, +S1, +S2 Pulses: PRESENT: normal carotid pulses Vascular exam: PRESENT: normal capillary refill GI/Abdominal exam: PRESENT: normal bowel sounds, soft. ABSENT: guarding, tenderness Extremities exam: PRESENT: pedal edema, +1 edema - To her upper thighs. ABSENT: clubbing Musculoskeletal exam: PRESENT: normal inspection. ABSENT: deformity Neurological exam: PRESENT: awake, oriented to person, oriented to place, oriented to situation Psychiatric exam: PRESENT: flat affect Skin exam: PRESENT: dry, warm, other - Evidence of chronic venous insufficiency with hemosiderin deposition in the lower extremities bilaterally Results Laboratory Results: 07/26/19 06:11 07/28/19 05:32 07/28/19 05:32 Sodium 133.8 L Potassium 3.6 Chloride 90 L Carbon Dioxide 36 H Anion Gap 8 BUN 10 Creatinine 0.51 L Est GFR ( Amer) > 60 Glucose 131 H Calcium 9.0 07/24/19 07/24/19 07/24/19 16:25 16:25 22:18 Creatine Kinase 148 H CK-MB (CK-2) Troponin I 0.022 NT-Pro-B Natriuret Pep 6500 H 07/24/19 07/25/19 07/25/19 22:18 06:23 06:23 Creatine Kinase Cancelled CK-MB (CK-2) 9.43 H 6.79 H Troponin I 0.028 0.029 NT-Pro-B Natriuret Pep 07/25/19 07/25/19 07/25/19 06:23 11:30 11:30 Creatine Kinase 118 97 CK-MB (CK-2) 6.78 H Troponin I 0.023 NT-Pro-B Natriuret Pep Impressions: Venous Doppler Study 07/24/19 16:19 IMPRESSION: No sonographic evidence of acute DVT within the lower extremities. Subcutaneous edema. Chest X-Ray 07/24/19 16:21 IMPRESSION: Cardiomegaly without a superimposed acute cardiopulmonary process. 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 Echocardiogram showed an EF of 35 to 40% with decreased right ventricular function. She is on beta-martha twice a day. When her blood pressure allows will consider adding an ROJELIO inhibitor. Plan will be to medically optimize her, arrange for outpatient follow-up so that she can get an ischemic work-up. (2) Anasarca Is this a current diagnosis for this admission?: Yes Plan: Diuresis as previously noted (3) Atrial fibrillation with rapid ventricular response Is this a current diagnosis for this admission?: Yes Plan: We got her off of the Cardizem drip and we have her on Toprol-XL twice a day wit h good heart rate control. We anticoagulate with Eliquis. (4) Breast cancer Qualifiers: Breast location: unspecified site of breast Estrogen receptor status: unspecified Patient sex: female Is this a current diagnosis for this admission?: Yes Plan: She is on letrozole (5) Hyponatremia Is this a current diagnosis for this admission?: Yes Plan: Probably from her hypervolemic state, her sodium has improved with diuresis (6) Tobacco use disorder, continuous Is this a current diagnosis for this admission?: Yes Plan: Strongly encourage smoking cessation (7) Hypomagnesemia Is this a current diagnosis for this admission?: Yes Plan: Following up to see if this is corrected, lab draws pending - Plan Summary Summary: Patient admitted to [facility] where she received routine supportive and symptomatic cares. She will initially be treated with a diltiazem infusion with eventual conversion to oral diltiazem as tolerated with rate control of her atrial fibrillation. Subcutaneous Lovenox will be used at 1 mg/kg every 12 hours for initial embolic prophylaxis. A cardiology consultation will be obtained with Dr. Best. An echocardiogram will be obtained. Patient will initially be treated with a Lasix infusion at 20 mg/h and her BMP will be followed on a every 6 hours basis. She received Dilaudid 0.5 to 2 mg IV every 3 hours as needed for pain using a sliding scale for dosing. She received Ativan 1 mg IV every 4 hours as needed for anxiety or restlessness. CBCs, metabolic profiles, magnesiu m levels and other laboratory or radiographic evaluations will be obtained as appropriate. Patient will be placed on a cardiac diet. Smoking cessation was advised and counseled briefly at the bedside. Nicotine replacement patch will be available for the patient's use, if desired. - Time Time Spent with patient: 25-34 minutes
[2019-07-28] MEDS ORDERED: LOPERAMIDE HCL 2 MG CAPSULE PO PRN (22:26)
[2019-07-28] MEDS ORDERED: LOPERAMIDE HCL 2 MG CAPSULE PO ONE (22:30)
[2019-07-29 05:45] LABS: HEMATOCRIT 41.2 % (36.0-47.0); HEMOGLOBIN 13.9 g/dL (12.0-15.5); MEAN CORPUSCULAR HEMOGLOBIN 31.7 pg (27.0-33.4); MEAN CORPUSCULAR HGB CONC 33.6 g/dL (32.0-36.0); MEAN CORPUSCULAR VOLUME 94 fl (80-97); PLATELET COUNT 130 10^3/uL (150-450); RED BLOOD COUNT 4.37 10^6/uL (3.72-5.28); RED CELL DISTRIBUTION WIDTH 14.9 % (11.5-14.0); WHITE BLOOD COUNT 5.6 10^3/uL (4.0-10.5)
[2019-07-29 06:06] LABS: ANION GAP 7 (5-19); BLOOD UREA NITROGEN 13 mg/dL (7-20); CALCIUM 8.7 mg/dL (8.4-10.2); CARBON DIOXIDE 37 mmol/L (22-30); CHLORIDE 91 mmol/L (98-107); GLUCOSE 110 mg/dL (75-110); POTASSIUM 3.4 mmol/L (3.6-5.0)
[2019-07-29] MEDS: FUROSEMIDE INJ/PF 20 MG/2 ML SDV IV SCH ×2 (06:16→17:40)
[2019-07-29 08:50] LABS: APPEARANCE,URINE CLEAR; BILIRUBIN,URINE NEGATIVE (NEGATIVE); COLOR,URINE YELLOW; GLUCOSE, URINE NEGATIVE (NEGATIVE); KETONES,URINE NEGATIVE (NEGATIVE); LEUKOCYTE ESTERASE,URINE SMALL (NEGATIVE); NITRITE,URINE NEGATIVE (NEGATIVE); PROTEIN,URINE NEGATIVE (NEGATIVE); URINE SPECIFIC GRAVITY 1.006; UROBILINOGEN,URINE NEGATIVE mg/dL (<2.0)
[2019-07-29] MEDS: MAGNESIUM SULFATE/D5W 1 GM/100 ML RTUPB IV SCH ×2 (10:55→13:32)
[2019-07-29] MEDS: APIXABAN 5 MG TABLET PO SCH ×2 (10:56→17:39)
[2019-07-29] MEDS: FAMOTIDINE 20 MG TABLET PO SCH ×2 (10:56→21:43)
[2019-07-29] MEDS: METOPROLOL SUCCINATE 50 MG TAB.SR.24H PO SCH ×2 (10:56→21:43)
--- NOTE | 2019-07-29 10:57 | PDOC PROGRESS REPORT ---
Subjective Progress Note for:: 07/29/19 Subjective:: CHELSIE MCKNIGHT is a 68 year old female with known breast cancer who was admitted on 07/24/2019 with new onset cardiomyopathy with an ejection fraction of approximately 40%, rapid atrial fibrillation and anasarca. She had been followed by my partner, Dr. Best. I am taking over her care today. She was initially placed on a Cardizem drip and eventually transitioned to oral metoprolol. Her troponin on admission was indeterminate and her proBNP was elevated at 6500. Initiation and up titration of GDMT had been limited by her low blood pressure. Today she is laying flat in bed complaining of shortness of breath. Her telemetry shows atrial fibrillation with rapid ventricular response with heart rates at 110 to 120 bpm at rest. Her fluid balance is -1039 cc. Physical exam on 07/29/2019: GENERAL: Not in acute distress. Disheveled. Mildly dyspneic with normal conversation. HEENT: Normocephalic, atraumatic. Pupils equal. Sclerae anicteric. Oropha rynx moist. NECK: No JVD. No carotid bruits. LUNGS: Clear to auscultation bilaterally. Normal respiratory effort without the use of accessory muscles or intercostal retractions. CARDIOVASCULAR: Irregularly irregular rate and rhythm, normal S1 and S2 without murmurs, rubs, or gallops. PMI not displaced. EXTREMITIES: No edema, no cyanosis, no clubbing. Left foot noted to have some ulcers which are covered with gauze. MUSCULOSKELETAL: No chest tenderness to palpation. NEUROLOGIC: Nonfocal. No gross sensory or motor deficits bilateral upper or lower extremities. Reason For Visit: ACUTE CONGESTIVE HEART FAILURE,ACUTE ATRIAL Physical Exam Vital Signs: Temp Pulse Resp BP Pulse Ox 97.2 F 110 H 20 102/56 L 94 07/29/19 03:24 07/29/19 07:00 07/29/19 03:24 07/29/19 03:24 07/29/19 03:24 Intake & Output 07/28/19 07/29/19 07/30/19 06:59 06:59 06:59 Intake Total 834 482 Output Total 2275 20 10 Balance -1441 462 -10 Weight 97.9 kg 100.3 kg Results Laboratory Results: 07/29/19 04:41 07/29/19 04:41 07/28/19 07/29/19 07/29/19 05:32 04:41 04:41 WBC 5.6 RBC 4.37 Hgb 13.9 Hct 41.2 MCV 94 MCH 31.7 MCHC 33.6 RDW 14.9 H Plt Count 130 L Sodium 134.6 L Potassium 3.4 L Chloride 91 L Carbon Dioxide 37 H Anion Gap 7 BUN 13 Creatinine 0.55 Est GFR ( Amer) > 60 Glucose 110 Calcium 8.7 Magnesium 1.3 L Urine Color Urine Appearance Urine pH Ur Specific [place] Urine Protein Urine Glucose (UA) Urine Ketones Urine Blood Urine Nitrite Ur Leukocyte Esterase Urine WBC (Auto) Urine RBC (Auto) 07/29/19 08:35 WBC RBC Hgb Hct MCV MCH MCHC RDW Plt Count Sodium Potassium Chloride Carbon Dioxide Anion Gap BUN Creatinine Est GFR ( Amer) Glucose Calcium Magnesium Urine Color YELLOW Urine Appearance CLEAR Urine pH 7.0 Ur Specific [place] 1.006 Urine Protein NEGATIVE Urine Glucose (UA) NEGATIVE Urine Ketones NEGATIVE Urine Blood SMALL H Urine Nitrite NEGATIVE Ur Leukocyte Esterase SMALL H Urine WBC (Auto) 8 Urine RBC (Auto) 2 07/24/19 07/24/19 07/24/19 16:25 16:25 22:18 Creatine Kinase 148 H CK-MB (CK-2) Troponin I 0.022 NT-Pro-B Natriuret Pep 6500 H 07/24/19 07/25/19 07/25/19 22:18 06:23 06:23 Creatine Kinase Cancelled CK-MB (CK-2) 9.43 H 6.79 H Troponin I 0.028 0.029 NT-Pro-B Natriuret Pep 07/25/19 07/25/19 07/25/19 06:23 11:30 11:30 Creatine Kinase 118 97 CK-MB (CK-2) 6.78 H Troponin I 0.023 NT-Pro-B Natriuret Pep Impressions: Venous Doppler Study 07/24/19 16:19 IMPRESSION: No sonographic evidence of acute DVT within the lower extremities. Subcutaneous edema. Chest X-Ray 07/24/19 16:21 IMPRESSION: Cardiomegaly without a superimposed acute cardiopulmonary process. Current Medication List Generic Name Dose Route Start Last Admin Trade Name Freq PRN Reason Stop Dose Admin Acetaminophen 650 mg 07/24/19 21:08 07/28/19 04:34 Tylenol 325 Mg Tablet PO 06/26/20 21:07 650 mg Q4HP PRN Administration For headache, pain or fever Al Hydrox/Mg Hydrox/Simethicone 30 ml 07/24/19 21:01 Maalox Plus Susp 30 Udcup PO 08/23/19 21:00 Q4HP PRN HEARTBURN Apixaban 5 mg 07/27/19 18:00 07/28/19 18:51 Eliquis 5 Mg Tablet PO 08/26/19 17:59 5 mg BID RADHIKA Administration Famotidine 20 mg 07/24/19 22:00 07/28/19 22:13 Pepcid 20 Mg Tablet PO 08/23/19 21:59 20 mg Q12 RADHIKA Administration Furosemide 20 mg 07/27/19 06:00 07/29/19 06:16 Lasix Inj/Pf 20 Mg/2 Ml Sdv IV 08/24/19 21:59 20 mg Q12A RADHIKA Administration Guaifenesin 200 mg 07/24/19 21:08 Robitussin Syrup 200 Mg/10 Ml Ud Cup PO 08/23/19 21:07 Q4HP PRN COUGH Hydralazine HCl 20 mg 07/24/19 21:08 Apresoline Inj/Pf 20 Mg/1 Ml Sdv IV 08/23/19 21:07 Q4HP PRN Give For Sbp > 160 / Dbp > 100 Levalbuterol HCl 0.63 mg 07/24/19 21:08 Xopenex Neb 0.63 Mg/3 Ml Ampul NEB 08/23/19 21:07 RTQ2HP PRN SHORTNESS OF BREATH Loperamide HCl 2 mg 07/28/19 22:26 Imodium 2 Mg Capsule PO 08/27/19 22:25 Q6HP PRN LOOSE STOOLS Magnesium Hydroxide 30 ml 07/24/19 21:01 Milk Of Magnesia 30 Ml Udcup PO 08/23/19 21:00 HSP PRN FOR CONSTIPATION Melatonin 10 mg 07/27/19 22:41 07/27/19 23:00 Melatonin 5 Mg Tablet PO 08/26/19 22:40 10 mg HSP PRN Administration INSOMNIA Metoprolol Succinate 50 mg 07/26/19 10:00 07/28/19 22:13 Toprol Xl 50 Mg Tab.Sr PO 08/25/19 09:59 50 mg Q12 RADHIKA Administration Nicotine 1 each 07/24/19 21:08 Nicoderm 21 Mg/24 Hr Transderm Patch TD 08/23/19 21:07 DAILYP PRN WITHDRAWAL SYMPTOMS Promethazine HCl 12.5 mg 07/25/19 09:30 Phenergan Inj 25 Mg/1 Ml Vial IV 08/23/19 21:00 Q4HP PRN FOR NAUSEA/VOMITING Silver Sulfadiazine 1 applic 07/27/19 10:00 07/28/19 10:04 Silvadene 1% Cream 25 Gm TP 08/26/19 09:59 1 applic DAILY RADHIKA Administration Sodium Chloride 2.5 ml 07/24/19 22:00 07/29/19 06:16 Saline Flush 2.5 Ml Monoject Prefil Syrin IV 08/23/19 21:59 2.5 ml Q8 RADHIKA Administration Discontinued Medications Generic Name Dose Route Start Last Admin Trade Name Freq PRN Reason Stop Dose Admin Clopidogrel Bisulfate 75 mg 07/25/19 10:00 07/27/19 11:34 Plavix 75 Mg Tablet PO 08/24/19 09:59 Not Given DAILY RADHIKA Diltiazem HCl 20 mg 07/24/19 19:09 07/24/19 19:43 Cardizem Inj 25 Mg/5 Ml Vial IV 07/24/19 19:10 20 mg NOW ONE Administration Docusate Sodium 100 mg 07/25/19 10:00 07/27/19 12:00 Colace 100 Mg Capsule PO 08/24/19 09:59 Not Given DAILY RADHIKA Enoxaparin Sodium 100 mg 07/24/19 20:24 07/24/19 20:44 Lovenox Inj 100 Mg/1 Ml Disp.Syrin SUBCUT 07/24/19 20:25 100 mg ONCE ONE Administration Enoxaparin Sodium 100 mg 07/25/19 10:00 07/27/19 11:34 Lovenox Inj 100 Mg/1 Ml Disp.Syrin SUBCUT 08/24/19 09:59 Not Given Q12 RADHIKA Furosemide 40 mg 07/24/19 19:10 07/24/19 19:33 Lasix Inj/Pf 40 Mg/4 Ml Sdv IV 07/24/19 19:11 40 mg NOW ONE Administration Furosemide 20 mg 07/25/19 22:00 07/27/19 01:09 Lasix Inj/Pf 20 Mg/2 Ml Sdv IV 08/24/19 21:59 Not Given Q12 RADHIKA Hydromorphone HCl 0 mg 07/24/19 23:54 Dilaudid Inj/Pf 2 Mg/Ml Ampule IV 07/31/19 23:53 Q3HP PRN FOR PAIN Protocol Hydromorphone HCl 0.5 mg 07/24/19 23:56 07/25/19 09:55 Dilaudid Inj/Pf 2 Mg/Ml Ampule IV 07/31/19 23:55 0.5 mg Q3HP PRN Administration PAIN SCALE OF 2 Hydromorphone HCl 1 mg 07/24/19 23:56 Dilaudid Inj/Pf 2 Mg/Ml Ampule IV 07/31/19 23:55 Q3HP PRN PAIN SCALE OF 3 Hydromorphone HCl 1.5 mg 07/24/19 23:57 Dilaudid Inj/Pf 2 Mg/Ml Ampule IV 07/31/19 23:56 Q3HP PRN PAIN SCALE OF 4 Hydromorphone HCl 2 mg 07/24/19 23:57 07/25/19 00:42 Dilaudid Inj/Pf 2 Mg/Ml Ampule IV 07/31/19 23:56 2 mg Q3HP PRN Administration PAIN SCALE OF 5 Hydromorphone HCl 2 mg 07/26/19 04:00 07/26/19 03:53 Dilaudid Inj/Pf 2 Mg/Ml Ampule IV 07/26/19 04:01 2 mg NOW ONE Administration Diltiazem HCl 125 mg in 125 mls @ 0 mls/hr 07/24/19 19:09 07/25/19 08:26 Cardizem Rtu Inj 125 Mg-D5w 125 Ml Premix IV 08/23/19 19:08 Infused CONTINUOUS PRN Titration THIS MED IS NOT "PRN" Protocol Titrate Furosemide 250 mg/ Sodium 275 mls @ 22 mls/hr 07/24/19 21:01 07/25/19 11:46 Chloride IV 08/23/19 21:00 Infused CONTINUOUS PRN Infusion THIS MED IS NOT "PRN" 20 MG/HR Diltiazem HCl 125 mg in 125 mls @ 0 mls/hr 07/24/19 21:10 07/25/19 14:00 Cardizem Rtu Inj 125 Mg-D5w 125 Ml Premix IV 06/26/20 21:09 Infused CONTINUOUS PRN Titration THIS MED IS NOT "PRN" Protocol Titrate Magnesium Sulfate/Dextrose 1 gm in 100 mls @ 100 mls/hr 07/25/19 09:45 07/25/19 12:22 Magnesium Sulfate Rtu-D5w 1 Gm/100 Ml Premix IV 07/25/19 11:44 Infused Q1H RADHIKA Infusion Magnesium Sulfate/Dextrose 1 gm in 100 mls @ 100 mls/hr 07/25/19 19:07 07/25/19 21:29 Magnesium Sulfate Rtu-D5w 1 Gm/100 Ml Premix IV 07/25/19 20:06 Infused NOW ONE Infusion Magnesium Sulfate/Dextrose 1 gm in 100 mls @ 100 mls/hr 07/29/19 07:30 Magnesium Sulfate Rtu-D5w 1 Gm/100 Ml Premix IV 07/29/19 09:29 Q1H RADHIKA Loperamide HCl 4 mg 07/28/19 22:30 07/28/19 22:45 Imodium 2 Mg Capsule PO 07/28/19 22:31 4 mg NOW ONE Administration Lorazepam 1 mg 07/24/19 21:08 Ativan Inj 2 Mg/1 Ml Vial IV 07/31/19 21:07 Q4HP PRN ANXIETY/AGITATION Metoprolol Succinate 50 mg 07/24/19 22:00 07/25/19 09:56 Toprol Xl 50 Mg Tab.Sr PO 08/23/19 21:59 50 mg Q12 RADHIKA Administration Metoprolol Succinate 50 mg 07/25/19 22:00 07/25/19 22:21 Toprol Xl 50 Mg Tab.Sr PO 08/23/19 21:59 50 mg QHS RADHIKA Administration Morphine Sulfate 4 mg 07/24/19 19:59 07/24/19 20:10 Morphine 10 Mg/Ml Inj IV 07/24/19 20:00 Not Given NOW ONE Morphine Sulfate 2 - 4 mg 07/24/19 21:08 Morphine 10 Mg/Ml Inj IV 07/31/19 21:07 Q2HP PRN See protocol Protocol Morphine Sulfate 2 mg 07/24/19 21:29 Morphine 10 Mg/Ml Inj IV 07/31/19 21:28 Q2HP PRN PAIN SCALE 2 Morphine Sulfate 3 mg 07/24/19 21:30 Morphine 10 Mg/Ml Inj IV 07/31/19 21:29 Q2HP PRN PAIN SCALE 3-4 Morphine Sulfate 4 mg 07/24/19 21:30 Morphine 10 Mg/Ml Inj IV 07/31/19 21:29 Q2HP PRN PAIN SCALE 5 Ondansetron HCl 4 mg 07/24/19 16:21 07/24/19 16:24 Zofran Odt 4 Mg Tablet PO 07/24/19 16:22 4 mg NOW ONE Administration Ondansetron HCl 4 mg 07/24/19 19:59 07/24/19 20:10 Zofran Inj/Pf 4 Mg/2 Ml Sdv IV 07/24/19 20:00 Not Given NOW ONE Promethazine HCl 12.5 mg 07/24/19 21:01 07/25/19 00:43 Phenergan Inj 25 Mg/1 Ml Vial IV 08/23/19 21:00 12.5 mg Q4HP PRN Administration FOR NAUSEA/VOMITING Silver Sulfadiazine 1 applic 07/24/19 20:34 07/24/19 20:42 Silvadene 1% Cream 25 Gm TP 07/24/19 20:35 25 gr NOW ONE Administration Sodium Bicarbonate 1,300 mg 07/24/19 22:00 07/25/19 14:12 Sodium Bicarbonate 650 Mg Tablet PO 08/23/19 21:59 1,300 mg PCHS RADHIKA Administration 07/29/19 04:41 07/29/19 04:41 MCV 94 fl (80-97) 07/29/19 04:41 MCH 31.7 pg (27.0-33.4) 07/29/19 04:41 MCHC 33.6 g/dL (32.0-36.0) 07/29/19 04:41 RDW 14.9 % (11.5-14.0) H 07/29/19 04:41 Seg Neutrophils % 74.4 % (42-78) 07/25/19 06:23 Chloride 91 mmol/L (98-107) L 07/29/19 04:41 Carbon Dioxide 37 mmol/L (22-30) H 07/29/19 04:41 Anion Gap 7 (5-19) 07/29/19 04:41 Est GFR ( Amer) > 60 (>60) 07/29/19 04:41 Glucose 110 mg/dL (75-110) 07/29/19 04:41 Calcium 8.7 mg/dL (8.4-10.2) 07/29/19 04:41 Magnesium 1.3 mg/dL (1.6-2.3) L 07/28/19 05:32 Total Bilirubin 1.1 mg/dL (0.2-1.3) 07/24/19 16:25 AST 30 U/L (14-36) 07/24/19 16:25 Alkaline Phosphatase 101 U/L (38-126) 07/24/19 16:25 Total Protein 7.1 g/dL (6.3-8.2) 07/24/19 16:25 Albumin 4.2 g/dL (3.5-5.0) 07/24/19 16:25 Triglycerides 116 mg/dL (<150) 07/25/19 06:23 Cholesterol 150.16 mg/dL (0-200) 07/25/19 06:23 LDL Cholesterol Direct 101 mg/dL (<100) H 07/25/19 06:23 VLDL Cholesterol 23.0 mg/dL (10-31) 07/25/19 06:23 HDL Cholesterol 42 mg/dL (>40) 07/25/19 06:23 Lipase 71.9 U/L (23-300) 07/24/19 16:25 TSH 0.66 uIU/mL (0.47-4.68) 07/24/19 16:25 Free T3 pg/mL 2.48 pg/mL (2.77-5.27) L 07/25/19 06:23 Urine Color YELLOW 07/29/19 08:35 Urine Appearance CLEAR 07/29/19 08:35 Urine pH 7.0 (5.0-9.0) 07/29/19 08:35 Ur Specific [place] 1.006 07/29/19 08:35 Urine Protein NEGATIVE mg/dL (NEGATIVE) 07/29/19 08:35 Urine Glucose (UA) NEGATIVE mg/dL (NEGATIVE) 07/29/19 08:35 Urine Ketones NEGATIVE mg/dL (NEGATIVE) 07/29/19 08:35 Urine Blood SMALL (NEGATIVE) H 07/29/19 08:35 Urine Nitrite NEGATIVE (NEGATIVE) 07/29/19 08:35 Ur Leukocyte Esterase SMALL (NEGATIVE) H 07/29/19 08:35 Urine WBC (Auto) 8 /HPF 07/29/19 08:35 Urine RBC (Auto) 2 /HPF 07/29/19 08:35 07/24/19 07/24/19 07/24/19 16:25 16:25 22:18 Creatine Kinase 148 H CK-MB (CK-2) Troponin I 0.022 NT-Pro-B Natriuret Pep 6500 H 07/24/19 07/25/19 07/25/19 22:18 06:23 06:23 Creatine Kinase Cancelled CK-MB (CK-2) 9.43 H 6.79 H Troponin I 0.028 0.029 NT-Pro-B Natriuret Pep 07/25/19 07/25/19 07/25/19 06:23 11:30 11:30 Creatine Kinase 118 97 CK-MB (CK-2) 6.78 H Troponin I 0.023 NT-Pro-B Natriuret Pep Assessment & Plan - Diagnosis (1) Acute congestive heart failure Qualifiers: Heart failure type: combined systolic and diastolic Qualified Code(s): I50.41 - Acute combined systolic (congestive) and diastolic (congestive) heart failure Is this a current diagnosis for this admission?: Yes Plan: Her ejection fraction appears to be between 35 and 40%. Although the patient complains of shortness of breath and appears to be short of breath with normal conversation, her exam does not show overt evidence of fluid overload. Her lungs are clear to auscultation and there is no lower extremity edema. Her shortness of breath might be from her rapid ventricular response to the atrial fibrillation. Unfortunately her low blood pressure is hindering our ability to initiate and uptitrate heart failure medications. Recommendations: -Continue with current medical management for now. -Continue with current dose of Lasix. -Recheck proBNP today. -At some point the patient will need ischemic evaluation with either myocardial perfusion scan versus [facility]. -We will follow-up with you. (2) Atrial fibrillation with rapid ventricular response Is this a current diagnosis for this admission?: Yes Plan: The patient is anticoagulated with Eliquis but unfortunately her heart rate continues to be above goal. Up titration of beta-martha is limited by her blood pressure however metoprolol should not drop her pressure that much therefore we will uptitrate the medicine to 75 mg twice daily with close attention to the blood pressure. If this proves unsuccessful we will then initiate digoxin. GAYLE guided cardioversion is also an option however it is unavailable at this facility currently. Recommendations: -Increase metoprolol to 75 mg twice daily. -We will continue to follow-up with you.
[2019-07-29] MEDS: SILVER SULFADIAZINE 1% CREAM 25 GM TP SCH (11:09)
[2019-07-29] MEDS ORDERED: OXYCODONE-ACETAMINOPHEN 5-325 MG TABLET PO PRN (11:30)
[2019-07-29] MEDS: OXYCODONE-ACETAMINOPHEN 5-325 MG TABLET PO PRN ×2 (13:32→21:44)
--- NOTE | 2019-07-29 14:09 | PDOC PROGRESS REPORT ---
Subjective Progress Note for:: 07/29/19 Subjective:: No adverse events overnight. She says just getting up to the bedside commode gets her short of breath. She still had a little bit of crackling on lung exam today. Some of it may be from atelectasis because she is not really gotten up and moved around very much because she has not been able to. Reason For Visit: ACUTE CONGESTIVE HEART FAILURE,ACUTE ATRIAL Physical Exam Vital Signs: Temp Pulse Resp BP Pulse Ox 98.1 F 58 L 19 111/74 93 07/29/19 11:10 07/29/19 11:10 07/29/19 11:10 07/29/19 11:10 07/29/19 11:10 Intake & Output 07/28/19 07/29/19 07/30/19 06:59 06:59 06:59 Intake Total 834 482 354 Output Total 2275 20 760 Balance -1441 462 -406 Weight 97.9 kg 100.3 kg General appearance: PRESENT: no acute distress, cooperative, disheveled, other - Looks fatigued Respiratory exam: PRESENT: Diminished bilaterally, crackles left base, symmetrical, unlabored. ABSENT: accessory muscle use, chest wall tenderness, prolonged expiratory phase, tachypnea, wheezes Cardiovascular exam: PRESENT: irregular rhythm, +S1, +S2 Pulses: PRESENT: normal carotid pulses Vascular exam: PRESENT: normal capillary refill GI/Abdominal exam: PRESENT: normal bowel sounds, soft. ABSENT: guarding, tenderness Extremities exam: PRESENT: pedal edema, +1 edema -ankles and pretibial areas. ABSENT: clubbing Musculoskeletal exam: PRESENT: normal inspection. ABSENT: deformity Neurological exam: PRESENT: awake, oriented to person, oriented to place, oriented to situation Psychiatric exam: PRESENT: flat affect Skin exam: PRESENT: dry, warm, other - Evidence of chronic venous insufficiency with hemosiderin deposition in the lower extremities bilaterally Results Laboratory Results: 07/29/19 04:41 07/29/19 04:41 07/29/19 07/29/19 07/29/19 04:41 04:41 08:35 WBC 5.6 RBC 4.37 Hgb 13.9 Hct 41.2 MCV 94 MCH 31.7 MCHC 33.6 RDW 14.9 H Plt Count 130 L Sodium 134.6 L Potassium 3.4 L Chloride 91 L Carbon Dioxide 37 H Anion Gap 7 BUN 13 Creatinine 0.55 Est GFR ( Amer) > 60 Glucose 110 Calcium 8.7 Urine Color YELLOW Urine Appearance CLEAR Urine pH 7.0 Ur Specific [place] 1.006 Urine Protein NEGATIVE Urine Glucose (UA) NEGATIVE Urine Ketones NEGATIVE Urine Blood SMALL H Urine Nitrite NEGATIVE Ur Leukocyte Esterase SMALL H Urine WBC (Auto) 8 Urine RBC (Auto) 2 07/24/19 07/24/19 07/24/19 16:25 16:25 22:18 Creatine Kinase 148 H CK-MB (CK-2) Troponin I 0.022 NT-Pro-B Natriuret Pep 6500 H 07/24/19 07/25/19 07/25/19 22:18 06:23 06:23 Creatine Kinase Cancelled CK-MB (CK-2) 9.43 H 6.79 H Troponin I 0.028 0.029 NT-Pro-B Natriuret Pep 07/25/19 07/25/19 07/25/19 06:23 11:30 11:30 Creatine Kinase 118 97 CK-MB (CK-2) 6.78 H Troponin I 0.023 NT-Pro-B Natriuret Pep Impressions: Venous Doppler Study 07/24/19 16:19 IMPRESSION: No sonographic evidence of acute DVT within the lower extremities. Subcutaneous edema. Chest X-Ray 07/24/19 16:21 IMPRESSION: Cardiomegaly without a superimposed acute cardiopulmonary process. 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 Echocardiogram showed an EF of 35 to 40% with decreased right ventricular function. She is on beta-martha twice a day. When her blood pressure allows will consider adding an ROJELIO inhibitor. Plan continues to medically optimize her, arrange for outpatient follow-up so that she can get an ischemic work-up. (2) Anasarca Is this a current diagnosis for this admission?: Yes Plan: Diuresis as previously noted (3) Atrial fibrillation with rapid ventricular response Is this a current diagnosis for this admission?: Yes Plan: We got her off of the Cardizem drip and we have her on Toprol-XL twice a day with good heart rate control. Heart rate is intermittently labile, but as her heart rate drops into the 50s on her current medication regimen I do not think we can titrate this anymore. We anticoagulate with Eliquis. (4) Breast cancer Qualifiers: Breast location: unspecified site of breast Estrogen receptor status: unspecified Patient sex: female Is this a current diagnosis for this admission?: Yes Plan: She is on letrozole (5) Hyponatremia Is this a current diagnosis for this admission?: Yes Plan: Probably from her hypervolemic state, her sodium has improved with diuresis (6) Tobacco use disorder, continuous Is this a current diagnosis for this admission?: Yes Plan: Strongly encourage smoking cessation (7) Hypomagnesemia Is this a current diagnosis for this admission?: Yes Plan: Replacing as needed - Plan Summary Summary: Patient admitted to [facility] where she received routine supportive and symptomatic cares. She will initially be treated with a diltiazem infusion with eventual conversion to oral diltiazem as tolerated with rate control of her atrial fibrillation. Subcutaneous Lovenox will be used at 1 mg/kg every 12 hours for initial embolic prophylaxis. A cardiology consultation will be obtained with Dr. Best. An echocardiogram will be obtained. Patient will initially be treated with a Lasix infusion at 20 mg/h and her BMP will be followed on a every 6 hours basis. She received Dilaudid 0.5 to 2 mg IV every 3 hours as needed for pain using a sliding scale for dosing. She received Ativan 1 mg IV every 4 hours as needed for anxiety or restlessness. CBCs, metabolic profiles, magnesium levels and other laboratory or radiographic evaluations will be obtained as appropriate. Patient will be placed on a cardiac diet. Smoking cessation was advised and counseled briefly at the bedside. Nicotine replacement patch will be available for the patient's use, if desired. - Time Time Spent with patient: 25-34 minutes
[2019-07-30] MEDS: OXYCODONE-ACETAMINOPHEN 5-325 MG TABLET PO PRN ×2 (05:34→11:55)
[2019-07-30] MEDS: FUROSEMIDE INJ/PF 20 MG/2 ML SDV IV SCH (05:40)
[2019-07-30 06:22] LABS: ANION GAP 7 (5-19); BLOOD UREA NITROGEN 14 mg/dL (7-20); CALCIUM 8.5 mg/dL (8.4-10.2); CARBON DIOXIDE 37 mmol/L (22-30); CHLORIDE 90 mmol/L (98-107); GLUCOSE 91 mg/dL (75-110); POTASSIUM 3.2 mmol/L (3.6-5.0)
[2019-07-30] MEDS ORDERED: POTASSIUM CHLORIDE 10 MEQ TABLET.ER PO ONE (07:55)
[2019-07-30] MEDS: APIXABAN 5 MG TABLET PO SCH (09:03)
[2019-07-30] MEDS: METOPROLOL SUCCINATE 50 MG TAB.SR.24H PO SCH (09:03)
[2019-07-30] MEDS: FAMOTIDINE 20 MG TABLET PO SCH (09:03)
--- NOTE | 2019-07-30 09:07 | PDOC PROGRESS REPORT ---
Subjective Progress Note for:: 07/30/19 Subjective:: CHELSIE MCKNIGHT is a 68 year old female with known breast cancer who was admitted on 07/24/2019 with new onset cardiomyopathy with an ejection fraction of approximately 40%, rapid atrial fibrillation and anasarca. She had been followed by my partner, Dr. Best. I am taking over her care today. She was initially placed on a Cardizem drip and eventually transitioned to oral metoprolol. Her troponin on admission was indeterminate and her proBNP was elevated at 6500. Initiation and up titration of GDMT had been limited by her low blood pressure. Today she is laying flat in bed complaining of shortness of breath. Her telemetry shows atrial fibrillation with rapid ventricular response with heart rates at 110 to 120 bpm at rest. Her fluid balance is -1039 cc. 07/30/2019: The patient had an uneventful night. She is found sleeping comfortably flat in bed. She is easily arousable. She denies shortness of breath and feels better however continues to have palpitations. Her fluid balance is -1.755 L and her telemetry shows persistent atrial fibrillation with RVR and rates between 110 and 120 at rest with higher readings when moving in bed. Her blood pressure continues to be on the low side. Physical exam on 07/30/2019: GENERAL: Not in acute distress. Disheveled. HEENT: Normocephalic, atraumatic. Pupils equal. Sclerae anicteric. Oropharynx moist. NECK: No JVD. No carotid bruits. LUNGS: Clear to auscultation bilaterally. Normal respiratory effort without the use of accessory muscles or intercostal retractions. CARDIOVASCULAR: Irregularly irregular rate and rhythm, tachycardic, without murmurs, rubs, or gallops. PMI not displaced. EXTREMITIES: No edema, no cyanosis, no clubbing. Left foot noted to have some ulcers which are covered with gauze. MUSCULOSKELETAL: No chest tenderness to palpation. NEUROLOGIC: Nonfocal. No gross sensory or motor deficits bilateral upper or lower extremities. Reason For Visit: ACUTE CONGESTIVE HEART FAILURE,ACUTE ATRIAL Physical Exam Vital Signs: Temp Pulse Resp BP Pulse Ox 98.3 F 72 17 73/47 L 90 L 07/30/19 08:19 07/30/19 08:19 07/30/19 08:19 07/30/19 08:19 07/30/19 08:19 Intake & Output 07/29/19 07/30/19 07/31/19 06:59 06:59 06:59 Intake Total 482 1244 Output Total 20 5520 Balance 462 -416 Weight 100.3 kg 97.6 kg Results Laboratory Results: 07/29/19 04:41 07/30/19 05:09 07/30/19 05:09 Sodium 133.6 L Potassium 3.2 L Chloride 90 L Carbon Dioxide 37 H Anion Gap 7 BUN 14 Creatinine 0.55 Est GFR ( Amer) > 60 Glucose 91 Calcium 8.5 07/24/19 07/24/19 07/24/19 16:25 16:25 22:18 Creatine Kinase 148 H CK-MB (CK-2) Troponin I 0.022 NT-Pro-B Natriuret Pep 6500 H 07/24/19 07/25/19 07/25/19 22:18 06:23 06:23 Creatine Kinase Cancelled CK-MB (CK-2) 9.43 H 6.79 H Troponin I 0.028 0.029 NT-Pro-B Natriuret Pep 07/25/19 07/25/19 07/25/19 06:23 11:30 11:30 Creatine Kinase 118 97 CK-MB (CK-2) 6.78 H Troponin I 0.023 NT-Pro-B Natriuret Pep Impressions: Venous Doppler Study 07/24/19 16:19 IMPRESSION: No sonographic evidence of acute DVT within the lower extremities. Subcutaneous edema. Chest X-Ray 07/24/19 16:21 IMPRESSION: Cardiomegaly without a superimposed acute cardiopulmonary process. Assessment & Plan - Diagnosis (1) Acute congestive heart failure Qualifiers: Heart failure type: combined systolic and diastolic Qualified Code(s): I50.41 - Acute combined systolic (congestive) and diastolic (congestive) heart failure Is this a current diagnosis for this admission?: Yes Plan: Her ejection fraction appears to be between 35 and 40% with a fluid balance of - 1.755 L, she appears euvolemic today and without any significant complaints. She has new onset cardiomyopathy of unclear etiology. Recommendations: -Replace potassium. -Transition IV Lasix to 20 mg p.o. twice daily. -Transfer to [facility] for further work-up as the patient continues to be hypotensive and in rapid A. fib. (2) Atrial fibrillation with rapid ventricular response Is this a current diagnosis for this admission?: Yes Plan: The patient is anticoagulated with Eliquis but unfortunately her heart rate continues to be above goal. Unfortunately she continues to be hypotensive which is hindering our ability to control her heart rate further particularly in the setting of new onset cardiomyopathy and heart failure. Given her current status and our limited ability to further care for this patient we will transfer her to [facility] for EP evaluation for her persistent atrial fibrillation and eventual ischemic evaluation given her new onset cardiomyopathy. Recommendations: -Continue with current medical management for now. -Transferred to [facility] for further care.
[2019-07-30] MEDS: SILVER SULFADIAZINE 1% CREAM 25 GM TP SCH (11:05)
[2019-07-30] MEDS ORDERED: HYDROXYZINE PAMOATE 25 MG CAPSULE PO ONE (11:15)
[2019-07-30 12:39] VITALS: BP 103/88
--- NOTE | 2019-07-30 13:17 | PDOC TRANSFER SUMMARY ---
General Admission Date/PCP: 07/24/19 20:34 MARIA DEL CARMEN TORRES MD Admission Date: 07/24/19 Transfer Date: 07/30/19 Accepting Facility: [facility] Accepting Physician: Dr. Rooney Resuscitation Status: Full Code - Transfer Diagnosis (1) Atrial fibrillation with rapid ventricular response Is this a current diagnosis for this admission?: Yes (2) Acute congestive heart failure Is this a current diagnosis for this admission?: Yes (3) Anasarca Is this a current diagnosis for this admission?: Yes (4) Breast cancer Is this a current diagnosis for this admission?: Yes (5) Hypomagnesemia Is this a current diagnosis for this admission?: Yes (6) Hyponatremia Is this a current diagnosis for this admission?: Yes (7) Tobacco use disorder, continuous Is this a current diagnosis for this admission?: Yes - Transfer Medications Home Medications: Levothyroxine Sodium [Synthroid 150 Mcg Tablet] 150 mcg PO DAILY 07/04/12 Letrozole [Femara 2.5 Mg Tablet] 2.5 mg PO DAILY 04/16/18 Metoprolol Tartrate [Lopressor 50 mg Tablet] 50 mg PO QHS 07/24/19 Oxycodone HCl/Acetaminophen [Percocet 5-325 mg Tablet] 1 tab PO Q12 07/24/19 Transfer Medications: Current Medications Acetaminophen (Tylenol 325 Mg Tablet) 650 mg PO Q4HP PRN PRN Reason: For headache, pain or fever Stop: 08/23/19 21:07 Last Admin: 07/28/19 04:34 Dose: 650 mg Documented by: Al Hydrox/Mg Hydrox/Simethicone (Maalox Plus Susp 30 Udcup) 30 ml PO Q4HP PRN PRN Reason: HEARTBURN Stop: 08/23/19 21:00 Apixaban (Eliquis 5 Mg Tablet) 5 mg PO BID [facility] Stop: 08/26/19 17:59 Last Admin: 07/30/19 09:03 Dose: 5 mg Documented by: Famotidine (Pepcid 20 Mg Tablet) 20 mg PO Q12 [facility] Stop: 08/23/19 21:59 Last Admin: 07/30/19 09:03 Dose: 20 mg Documented by: Furosemide (Lasix 40 Mg Tablet) 40 mg PO BID [facility] Stop: 08/29/19 17:59 Guaifenesin (Robitussin Syrup 200 Mg/10 Ml Ud Cup) 200 mg PO Q4HP PRN PRN Reason: COUGH Stop: 08/23/19 21:07 Hydralazine HCl (Apresoline Inj/Pf 20 Mg/1 Ml Sdv) 20 mg IV Q4HP PRN PRN Reason: Give For Sbp > 160 / Dbp > 100 Stop: 08/23/19 21:07 Letrozole (Femara 2.5 Mg Tablet) 2.5 mg PO DAILY [facility] Stop: 08/30/19 09:59 Levalbuterol HCl (Xopenex Neb 0.63 Mg/3 Ml Ampul) 0.63 mg NEB RTQ2HP PRN PRN Reason: SHORTNESS OF BREATH Stop: 08/23/19 21:07 Levothyroxine Sodium (Synthroid 0.15 Mg Tablet) 0.15 mg PO DAILY [facility] Stop: 08/30/19 09:59 Loperamide HCl (Imodium 2 Mg Capsule) 2 mg PO Q6HP PRN PRN Reason: LOOSE STOOLS Stop: 08/27/19 22:25 Magnesium Hydroxide (Milk Of Magnesia 30 Ml Udcup) 30 ml PO HSP PRN PRN Reason: FOR CONSTIPATION Stop: 08/23/19 21:00 Melatonin (Melatonin 5 Mg Tablet) 10 mg PO HSP PRN PRN Reason: INSOMNIA Stop: 08/26/19 22:40 Last Admin: 07/27/19 23:00 Dose: 10 mg Documented by: Metoprolol Succinate (Toprol Xl 50 Mg Tab.Sr) 50 mg PO Q12 [facility] Stop: 08/25/19 09:59 Last Admin: 07/30/19 09:03 Dose: 50 mg Documented by: Nicotine (Nicoderm 21 Mg/24 Hr Transderm Patch) 1 each TD DAILYP PRN PRN Reason: WITHDRAWAL SYMPTOMS Stop: 08/23/19 21:07 Oxycodone/Acetaminophen (Percocet 5-325 Mg Tablet) 0.5 tab PO Q6HP PRN PRN Reason: PAIN Stop: 08/05/19 13:18 Last Admin: 07/30/19 11:55 Dose: 0.5 tab Documented by: Promethazine HCl (Phenergan Inj 25 Mg/1 Ml Vial) 12.5 mg IV Q4HP PRN PRN Reason: FOR NAUSEA/VOMITING Stop: 08/23/19 21:00 Silver Sulfadiazine (Silvadene 1% Cream 25 Gm) 1 applic TP DAILY [facility] Stop: 08/26/19 09:59 Last Admin: 07/30/19 11:05 Dose: Not Given Documented by: Sodium Chloride (Saline Flush 2.5 Ml Monoject Prefil Syrin) 2.5 ml IV Q8 [facility] Stop: 08/23/19 21:59 Last Admin: 07/30/19 05:40 Dose: 2.5 ml Documented by: - Allergies Allergies/Adverse Reactions: adhesive tape Allergy (Verified 04/16/18 12:12) Penicillins Allergy (Verified 04/16/18 12:12) - Diet/Activity Discharge Diet: Cardiac Discharge Activity: Activity As Tolerated Hospital Course Hospital Course: Per H&P by Dr. Middleton: CHELSIE MCKNIGHT is a 68 year old female who presented to the emergency room with a two-week history of edema. She complains of progressively worsening edema of her bilateral lower extremities extending up above her knees and into her hips and abdomen over the last 2 weeks. Her sw elling has been accompanied by progressively worsening sharp aching pain, localized primarily in the left foot and lower leg, becoming severe today. She was seen by her primary care provider last week and started on oral Cipro, oral Lasix and oral potassium. She was unable to tolerate the oral medications due to nausea and vomiting and discontinued them. She denies any additional associated or accompanying signs and symptoms. She denies prior similar episodes. She has not identified any aggravating or ameliorating factors for her lower extremity edema. In the emergency room she was found to have atrial fibrillation with a rapid ventricular response, hyponatremia and anelevated BNP. Her exam in the emergency room confirmed anasarca-like edema of her abdomen and bilateral lower extremities. She was treated with a diltiazem bolus and infusion which provided control of her atrial fibrillation. She was also given IV Lasix and subsequently admitted to the [facility] for further evaluation and treatment. Course: The patient was admitted to [facility] on continuous cardiac telemetry. She was initially placed on IV Lasix and diltiazem drip for management of her A. fib RVR and fluid overload due to new diagnosis of CHF. She was also placed on a heparin drip. Cardiology was consulted; medication management per their recommendations. Once rate control was achieved, patient was transitioned to p.o. Toprol XL mg twice daily. She has since been transitioned to p.o. Eliquis and furosemide. Echocardiogram revealed LV dysfunction with suboptimal quality, but estimated ejection fraction of 40%, and high suspicion for dilated cardiomyopathy. Unfortunately, hypotension required dose reduction of her Toprol with resultant increased ventricular rate. Cardiology has recommended transfer to tertiary care center for timely GAYLE guided cardioversion which is currently unavailable at this facility. Patient remains A&Ox4 and appears euvolemic today. She reports fatigue and generalized weakness with activity, and occasional palpitations. She is agreeable to transfer to another facility where electrophysiology studies/interventions are readily available. Physical Exam Vital Signs: Temp Pulse Resp BP Pulse Ox 98.3 F 72 17 96/60 L 90 L 07/30/19 08:19 07/30/19 08:19 07/30/19 08:19 07/30/19 11:52 07/30/19 08:19 Intake & Output 07/29/19 07/30/19 07/31/19 06:59 06:59 06:59 Intake Total 482 1244 Output Total 20 1660 Balance 462 -416 Weight 100.3 kg 97.6 kg General appearance: PRESENT: no acute distress, cooperative, well-developed, well-nourished - Overweight Head exam: PRESENT: atraumatic, normocephalic Eye exam: PRESENT: conjunctiva pink, EOMI, PERRLA. ABSENT: scleral icterus Mouth exam: PRESENT: moist, tongue midline Respiratory exam: PRESENT: clear to auscultation irvin, symmetrical, unlabored, other - Supplemental oxygen via nasal cannula. ABSENT: rales, rhonchi, wheezes Cardiovascular exam: PRESENT: irregular rhythm, tachycardia - 100 (at rest) -140 (w/ activity). ABSENT: diastolic murmur, rubs, systolic murmur Pulses: PRESENT: normal dorsalis pedis pul Vascular exam: PRESENT: normal capillary refill GI/Abdominal exam: PRESENT: normal bowel sounds, soft. ABSENT: distended, guarding, mass, organolmegaly, rebound, tenderness Rectal exam: PRESENT: deferred Extremities exam: PRESENT: full ROM. ABSENT: calf tenderness, clubbing, pedal edema Neurological exam: PRESENT: alert, awake, oriented to person, oriented to place, oriented to time, oriented to situation, CN II-XII grossly intact. ABSENT: motor sensory deficit Psychiatric exam: PRESENT: appropriate affect, normal mood. ABSENT: homicidal ideation, suicidal ideation Skin exam: PRESENT: dry, intact, warm. ABSENT: cyanosis, rash Results Laboratory Results: 07/29/19 04:41 07/30/19 05:09 07/30/19 07/30/19 05:09 05:09 Sodium 133.6 L Potassium 3.2 L Chloride 90 L Carbon Dioxide 37 H Anion Gap 7 BUN 14 Creatinine 0.55 Est GFR ( Amer) > 60 Glucose 91 Calcium 8.5 Magnesium 1.6 07/24/19 07/24/19 07/24/19 16:25 16:25 22:18 Creatine Kinase 148 H CK-MB (CK-2) Troponin I 0.022 NT-Pro-B Natriuret Pep 6500 H 07/24/19 07/25/19 07/25/19 22:18 06:23 06:23 Creatine Kinase Cancelled CK-MB (CK-2) 9.43 H 6.79 H Troponin I 0.028 0.029 NT-Pro-B Natriuret Pep 07/25/19 07/25/19 07/25/19 06:23 11:30 11:30 Creatine Kinase 118 97 CK-MB (CK-2) 6.78 H Troponin I 0.023 NT-Pro-B Natriuret Pep Impressions: Venous Doppler Study 07/24/19 16:19 IMPRESSION: No sonographic evidence of acute DVT within the lower extremities. Subcutaneous edema. Chest X-Ray 07/24/19 16:21 IMPRESSION: Cardiomegaly without a superimposed acute cardiopulmonary process. Plan Time Spent: Greater than 30 Minutes
[2019-07-30] MEDS ORDERED: FUROSEMIDE 40 MG TABLET PO SCH (18:00)
[2019-07-31] MEDS ORDERED: LETROZOLE 2.5 MG TABLET PO SCH (10:00)
[2019-07-31] MEDS ORDERED: LEVOTHYROXINE SODIUM 0.15 MG TABLET PO SCH (10:00)
== END 2019-07-30 14:59 | disposition short-term general hospital (02) | DRG 308 ==
LOC: ER 15:49 → EH 20:34 → 3N 22:37 → 3W 07-26 15:18
PROVIDERS: ADMIT Emergency Medicine; ATTEND Registered Nurse
DX: I48.19 Other persistent atrial fibrillation (principal); I50.41 Acute combined systolic (congestive) and diastolic (congestive) heart failure; E87.1 Hypo-osmolality and hyponatremia; I11.0 Hypertensive heart disease with heart failure; I48.91 Unspecified atrial fibrillation; I73.9 Peripheral vascular disease, unspecified; E78.5 Hyperlipidemia, unspecified; E03.9 Hypothyroidism, unspecified; K21.9 Gastro-esophageal reflux disease without esophagitis; F17.200 Nicotine dependence, unspecified, uncomplicated; I87.2 Venous insufficiency (chronic) (peripheral); C50.919 Malignant neoplasm of unspecified site of unspecified female breast; E83.42 Hypomagnesemia; I42.0 Dilated cardiomyopathy; I95.9 Hypotension, unspecified; Z87.81 Personal history of (healed) traumatic fracture; Z79.890 Hormone replacement therapy; Z88.0 Allergy status to penicillin; Z88.8 Allergy status to other drugs, medicaments and biological substances
CPT/HCPCS: 36415; 71046; 80048; 80053; 80061; 81001; 82550; 82553; 83690; 83735; 83880; 84443; 84481; 84484; 85025; 85027; 85610; 85730; 93005; 93010; 93306; 93970; 96365; 96375; 96376; 99285; J1170; J1650; J1940; J2550; J3475; J3490; J7050; S0119

== ENCOUNTER → 2019-12-12 | Outpatient (CLI) | payer MEDICARE, MEDICAID ==
[2019-12-12 16:59] LABS: ABSOLUTE EOSINOPHILS # (AUTO) 0.1 10^3/uL (0.0-0.6); ABSOLUTE LYMPHOCYTES (AUTO) 1.1 10^3/uL (0.5-4.7); ABSOLUTE MONOCYTES (AUTO) 0.3 10^3/uL (0.1-1.4); ABSOLUTE NEUT (AUTO) 2.3 10^3/uL (1.7-8.2); BASOPHILS % (AUTO) 0.7 % (0-2); EOSINOPHILS % (AUTO) 2.4 % (0-6); HEMATOCRIT 36.2 % (36.0-47.0); HEMOGLOBIN 12.5 g/dL (12.0-15.5); LYMPHOCYTES % (AUTO) 28.8 % (13-45); MEAN CORPUSCULAR HGB CONC 34.5 g/dL (32.0-36.0); MEAN CORPUSCULAR VOLUME 99 fl (80-97); PLATELET COUNT 161 10^3/uL (150-450); RED BLOOD COUNT 3.67 10^6/uL (3.72-5.28); RED CELL DISTRIBUTION WIDTH 13.3 % (11.5-14.0); SEGMENTED NEUTROPHILS % (AUTO) 61.1 % (42-78); TOTAL CELLS COUNTED % (AUTO) 100 %; WHITE BLOOD COUNT 3.8 10^3/uL (4.0-10.5)
[2019-12-12 17:14] LABS: ALBUMIN 4.7 g/dL (3.5-5.0); ALKALINE PHOSPHATASE 87 U/L (38-126); ANION GAP 11 (5-19); ASPARTATE AMINO TRANSFERASE 28 U/L (14-36); BILIRUBIN,DIRECT 0.3 mg/dL (0.0-0.4); BILIRUBIN,TOTAL 0.6 mg/dL (0.2-1.3); BLOOD UREA NITROGEN 9 mg/dL (7-20); C-REACTIVE PROTEIN 11.5 mg/L (<10.0); CALCIUM 9.8 mg/dL (8.4-10.2); CARBON DIOXIDE 34 mmol/L (22-30); CHLORIDE 95 mmol/L (98-107); GLUCOSE 87 mg/dL (75-110)
[2019-12-12 17:56] LABS: ERYTHROCYTE SEDIMENTATION RATE 43 mm/hr (0-30)
== END ==
LOC: WC 15:40
PROVIDERS: ATTEND Nurse Practitioner Family
DX: L97.222 Non-pressure chronic ulcer of left calf with fat layer exposed (principal)
CPT/HCPCS: 36415; 80053; 85025; 85652; 86140

== ENCOUNTER → 2019-12-18 | Outpatient (CLI) | payer MEDICARE, MEDICAID ==
--- NOTE | 2019-12-19 08:24 | RADIOLOGY REPORT (SQ) ---
EXAM DESCRIPTION: ARTERIAL LOWER EXTREM BILAT; PHYSIO ARTERIAL LTD IMAGES COMPLETED DATE/TIME: 12/18/2019 2:58 pm REASON FOR STUDY: LT CALF ULCER L97.222 NON-PRESSURE CHRONIC ULCER OF LEFT CALF W FAT LAYER COMPARISON: None. TECHNIQUE: Dynamic and static can scale and color images acquired of the lower extremity arteries. Additional selected spectral images recorded. ABIs recorded. LIMITATIONS: None. FINDINGS: RIGHT LEG: ABIS: 0.93- 0.95. INFLOW ARTERIES: Normal, no obstruction evident. FEMORAL ARTERIES:Triphasic waveforms. Normal, no velocity elevation to suggest focal stenosis. Normal color Doppler evaluation. No aneurysm. POPLITEAL ARTERY:Triphasic waveforms. Normal, no velocity elevation to suggest focal stenosis. Normal color Doppler evaluation. No aneurysm. PATENT TIBIOPERONEAL TRUNK AND 3 VESSEL RUNOFF: Yes, normal vessels. TBI: Not performed. OTHER: No other significant finding. LEFT LEG: ABIS: 0.54. INFLOW ARTERIES: Normal, no obstruction evident. FEMORAL ARTERIES:Patent common femoral and profunda femoral artery.. Short segment occlusion of the m id to distal superficial femoral artery with reconstitution from the profunda femoral artery distally . POPLITEAL ARTERY:Biphasic waveforms. Normal, no velocity elevation to suggest focal stenosis. Normal color Doppler evaluation. No aneurysm. PATENT TIBIOPERONEAL TRUNK AND 3 VESSEL RUNOFF: Yes, normal vessels. TBI: Not performed. OTHER: No other significant finding. IMPRESSION: 1. 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 ANKLE-BRACHIAL INDICES CONSISTENT WITH MODERATE ISCHEMIA. 2. NORMAL RIGHT LOWER EXTREMITY ARTERIAL DOPPLER. ANKLE-BRACHIAL INDICES CONSISTENT WITH MILD ISCHEM IA. COMMENT: [facility] NORMAL: Greater than 1.0 MINIMAL DISEASE: 0.9 to 1.0 CLAUDICATION: 0.5 to 0.9 SEVERE ARTERIAL DISEASE: Less than 0.5 [facility] NORMAL: Greater than 1.0 (1.2 If Heavy Calcifications) NORMAL TO MILD ISCHEMIA: 0.8 to 1.0 MODERATE ISCHEMIA: 0.4 to 0.8 SEVERE ISCHEMIA: Less than 0.4 TECHNICAL DOCUMENTATION: JOB ID: [id number] 2010 [employer]- All Rights Reserved Reading location - IP/workstation name: [email or web address]
--- NOTE | 2019-12-19 08:24 | RADIOLOGY REPORT (SQ) ---
EXAM DESCRIPTION: ARTERIAL LOWER EXTREM BILAT; PHYSIO ARTERIAL LTD IMAGES COMPLETED DATE/TIME: 12/18/2019 2:58 pm REASON FOR STUDY: LT CALF ULCER L97.222 NON-PRESSURE CHRONIC ULCER OF LEFT CALF W FAT LAYER COMPARISON: None. TECHNIQUE: Dynamic and static can scale and color images acquired of the lower extremity arteries. Additional selected spectral images recorded. ABIs recorded. LIMITATIONS: None. FINDINGS: RIGHT LEG: ABIS: 0.93- 0.95. INFLOW ARTERIES: Normal, no obstruction evident. FEMORAL ARTERIES:Triphasic waveforms. Normal, no velocity elevation to suggest focal stenosis. Normal color Doppler evaluation. No aneurysm. POPLITEAL ARTERY:Triphasic waveforms. Normal, no velocity elevation to suggest focal stenosis. Normal color Doppler evaluation. No aneurysm. PATENT TIBIOPERONEAL TRUNK AND 3 VESSEL RUNOFF: Yes, normal vessels. TBI: Not performed. OTHER: No other significant finding. LEFT LEG: ABIS: 0.54. INFLOW ARTERIES: Normal, no obstruction evident. FEMORAL ARTERIES:Patent common femoral and profunda femoral artery.. Short segment occlusion of the m id to distal superficial femoral artery with reconstitution from the profunda femoral artery distally . POPLITEAL ARTERY:Biphasic waveforms. Normal, no velocity elevation to suggest focal stenosis. Normal color Doppler evaluation. No aneurysm. PATENT TIBIOPERONEAL TRUNK AND 3 VESSEL RUNOFF: Yes, normal vessels. TBI: Not performed. OTHER: No other significant finding. IMPRESSION: 1. 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 ANKLE-BRACHIAL INDICES CONSISTENT WITH MODERATE ISCHEMIA. 2. NORMAL RIGHT LOWER EXTREMITY ARTERIAL DOPPLER. ANKLE-BRACHIAL INDICES CONSISTENT WITH MILD ISCHEM IA. COMMENT: [facility] NORMAL: Greater than 1.0 MINIMAL DISEASE: 0.9 to 1.0 CLAUDICATION: 0.5 to 0.9 SEVERE ARTERIAL DISEASE: Less than 0.5 [facility] NORMAL: Greater than 1.0 (1.2 If Heavy Calcifications) NORMAL TO MILD ISCHEMIA: 0.8 to 1.0 MODERATE ISCHEMIA: 0.4 to 0.8 SEVERE ISCHEMIA: Less than 0.4 TECHNICAL DOCUMENTATION: JOB ID: [id number] 2010 [employer]- All Rights Reserved Reading location - IP/workstation name: [email or web address]
== END ==
LOC: SP 12:56
PROVIDERS: ATTEND Nurse Practitioner Family
DX: L97.222 Non-pressure chronic ulcer of left calf with fat layer exposed (principal); I99.8 Other disorder of circulatory system
CPT/HCPCS: 93922; 93925